=== PATIENT | female | born 1995 | race Caucasian/White ===

== ENCOUNTER 2016-05-25 19:34 | Emergency (ER) | payer MEDICAID, OTHER ==
[~2016-05-25] VITALS: Ht 160 cm; Wt 94.6 kg
[~2016-05-25 19:34] MED LIST: HYDR1TAB73 PO; IBUP200C42 PO; LANS30CA44 PO; [UNRECOGNIZED DRUG - CODE]
--- OUTSIDE RECORDS SUMMARY | 2016-05-25 19:38 | XMS REPORT | Continuity of Care Document ---
Author Author [facility] Organization [facility] Address Unknown Phone Unavailable Allergies Active Description Code Type Severity Reaction Onset Reported/Identified Relationship to Patient Clinical Status Yes No Known Drug Allergies [id number] N/A N/A Medications Problems Procedures Results Encounters ACCT No. Visit Date/Time Discharge Status Pt. Type Provider Facility Loc./Unit Complaint [id number] 05/20/2016 15:15:00 05/20/2016 23: 59:59 CLS Outpatient Ervin Joy
[2016-05-25 19:53] VITALS: Ht 160 cm; Wt 94.6 kg
[2016-05-25] MEDS ORDERED: PREN1TAB73 PO (20:00)
--- OUTSIDE RECORDS SUMMARY | 2016-05-25 20:06 | XMS REPORT | Continuity of Care Document ---
Author Author [facility] Organization [facility] Address Unknown Phone Unavailable Allergies Active Description Code Type Severity Reaction Onset Reported/Identified Relationship to Patient Clinical Status Yes No Known Drug Allergies [id number] N/A N/A Medications Problems Procedures Results Encounters ACCT No. Visit Date/Time Discharge Status Pt. Type Provider Facility Loc./Unit Complaint [id number] 05/20/2016 15:15:00 05/20/2016 23: 59:59 CLS Outpatient Ervin Joy
--- NOTE | 2016-05-25 20:07 | ERPDOC ---
Departure Disposition Decision Date: May 25, 2016 Disposition Decision Time: 22:24 Disposition: 01 DISCHARGED HOME, SELF-CARE Impression Impression Impression: Primary Impression: Syncope Syncope type: unspecified Qualified Codes: R55 - Syncope and collapse Severity: Moderate Condition: Stable Seen By: Mid-level only Referrals: ANTHONY WELLER MD (PCP) Patient Instructions: Syncope (ED) Problems/Meds/Labs Reviewed?: Yes Medications reviewed and manag: Yes Additional Instructions: Make sure that you are drinking plenty of fluids at home. Try to get some rest over the next few days. Follow up with Dr Joy if any further issues/ concerns. Follow up care ordered?: Yes Mental Status: Alert HPI - Syncope General Chief Complaint: Syncope Stated Complaint: PASSED OUT/ Time Seen by Provider: 19:59 Source: patient Exam Limitations: no limitations HPI - Syncope Initial Comments She was at home today and was outside with her boyfriend. She started coughing and then felt like she was going to pass out. Her BF states that she started to slide to the ground so he supported her down to laying position. She stated that she felt like she was dreaming for about 30 seconds. Feels back to normal now. Is 8 weeks , . LMP was 03/30/16. Has had an initial appointment with Dr Joy and will have her next appt on June 10. She has had one episode of vomiting today. Has not had any fever or diarrhea. Has been trying to eat and drink despite her nausea. Denies any injury Occurred At: home Onset: Rapid Duration: 1/2 hour Symptoms Prior to Episode: lightheadedness Precipitating Factors: standing, coughing Loss of Consciousness: brief (seconds) Current Symptoms: DENIES: blurred vision, chest pain, diaphoresis, dizziness, headache, injury, lightheadedness, loss of bladder control, loss of bowel control, motionless, nausea, pale, shallow/rapid breathing, weak/absent pulse, weakness Hx of Similar Symptoms: Yes Allergies: Coded Allergies: No Known Allergies (Unverified , 05/25/16) Past History Past Medical History Female: UTI, pyelonephritis Surgical History Joint: other Family History Family PMH: FOUND: ID, diabetes, hypertension Vaccines Hx Influenza Vaccination: No Hx Pneumococcal Vaccination: No Hx Tetanus, Diptheria, Pertuss: Yes Social History Smoking Status: Never smoker Substance Use Type: does not use Alcohol Intake: none Review of Systems Constitutional Constitutional: DENIES: appetite decrease, chills, dizziness, fatigue, fever, weakness ENMT Ears: DENIES: drainage, pain Sinuses: DENIES: congestion, rhinorrhea Mouth/Throat: DENIES: painful swallowing, scratchy throat, sore throat Cardiovascular Cardiac: DENIES: chest pain, orthopnea Rhythm/Rate: DENIES: irregular beat, palpitations Pulmonary Respiratory: DENIES: cough, dyspnea, sputum, tachypnea GI Upper Abdomen: nausea, vomiting (once today ), DENIES: pain Lower Abdomen: DENIES: constipation, diarrhea, pain General: DENIES: dysuria, frequency, urgency Integumentary Skin: DENIES: rash Neurological General: DENIES: headache, numbness, tingling, weakness Physical Exam General General Nourishment: well nourished, well developed, appears stated age, no acute distress, adult, obese General Body Habitus: well groomed Vitals and Pain First Documented Vital Signs Date Time Temp Pulse Resp B/P Pulse Ox O2 Delivery O2 Flow Rate FiO2 05/25/16 19:53 98.9 94 16 152/88 96 Room Air Weight: Kilograms: 94.600 Height (feet): 5 Height (inches): 3.00 Triage Pain Scale: RN VS reviewed by Provider: Yes Normal Exams: Neck: Full range of motion, without adenopathy, JVD, bruits or thyromegaly Chest/Resp: Clear all mckeon, with good airflow, and symmetry bilaterally CV: Regular rate and rhythm, without murmur or gallop, Pulses 2+ all extremities, capillary refill, <2 seconds all ext., no pedal edema noted Abdomen: Bowel sounds positive, soft, non-tender, non-distended, no hepatosplenomegaly, masses or bruits noted Lymphatic: No lymphadenopathy, or lymphedema noted Integumentary: No rashes, hives, or bruising noted Neurologic: Patient is alert, and oriented, cranial nerves, motor/sensory/ cerebellar, exams w/o gross deficits, to observation Psychiatric: Patient exhibits, appropriate attention, emotion and affect Differential Diagnoses Differential Diagnoses Considering: Bradycardia, Cardiac Dysrhythmia, Orthostatic Hypotension, UTI, Vasovagal Reaction, Other (dehydration) Progress Results/Orders Orders Procedure Category Date Status Time Cbc W/Auto LAB 05/25/16 Complete Diff-Reflex Manual Bmp - Basic Metabolic LAB 05/25/16 Complete Panel Ua, Dip Wreflex LAB 05/25/16 Complete Microsc & Chief Customer Officer 20:04 Iv Lock (Ed Only) EDM 05/25/16 Transmitted 20:04 Normal Saline (Normal PHA 05/25/16 Complete Saline Iv) 20:15 EKG EKG 05/25/16 Taken Lab Results Laboratory Tests Test 05/25/16 20:18 05/25/16 22:00 White Blood Count 10.2T/MM3 Red Blood Count 4.51M/MM3 Hemoglobin 13.9GM/DL Hematocrit 40.0% Mean Corpuscular Volume 88.7UM3 Mean Corpuscular Hemoglobin 30.8UUG Mean Corpuscular Hemoglobin Concent 34.8GM/DL RDW Standard Deviation 39.8FL Platelet Count 212T/MM3 Mean Platelet Volume 9.5UM3 Immature Granulocyte % (Auto) 0.3% Neutrophils (%) (Auto) 74.5% Lymphocytes (%) (Auto) 20.3% Monocytes (%) (Auto) 3.7% Eosinophils (%) (Auto) 1.0% Basophils (%) (Auto) 0.2% Absolute Immature Granulocyte (auto 0.03T/MM3 Absolute Neutrophils (auto) 7.6T/MM3 Absolute Lymphocytes (auto) 2.1T/MM3 Absolute Monocytes (auto) 0.4T/MM3 Absolute Eosinophils (auto) 0.1T/MM3 Absolute Basophils (auto) 0.0T/MM3 Turbidity < 20 Sodium Level 143MEQ/L Potassium Level 3.9MEQ/L Chloride Level 105MEQ/L Carbon Dioxide Level 24MEQ/L Anion Gap 14MEQ/L Blood Urea Nitrogen 6.0MG/DL Creatinine 0.5MG/DL Glomerular Filtration Rate Calc 154 BUN/Creatinine Ratio 12RATIO Glucose Level 124MG/DL Calculated Osmolality 274MOSM/KG Calcium Level 9.1MG/DL Icterus Index < 2 Chemistry Specimen Hemolysis 39 Urine Collection Type Cleancatch-midstream Urine Color Yellow Urine Turbidity Clear Urine pH 6.5 Urine Specific Alverda 1.010 Urine Protein Negative Urine Glucose (UA) Negative Urine Ketones Negative Urine Blood Negative Urine Nitrite Negative Urine Bilirubin Negative Urine Urobilinogen 0.2EU/DL Urine Leukocyte Esterase Negative Urinalysis Comment Microscopic not ind. Medications Current ED Medications Sodium Chloride (Normal Saline IV) 1,000 ml @ 1,000 mls/hr Q1H ONCE IV Last administered on 05/25/16t 20:23; Start 05/25/16 at 20:15; Stop 05/25/16 at 21:14; Status DC Progress Progress CBC, BMP, and UA today are normal. She has felt well during her stay in ER. Vitals are stable. Will go ahead and discharge to home today. Have her drink fluids and follow up with Dr Joy this week for reevaluation. TONY ALCARAZ APRN May 25, 2016 20:07
[2016-05-25] MEDS ORDERED: NORMAL SALINE 1,000 ML IV ONE (20:15)
[2016-05-25 20:35] LABS: BASOPHILS % (AUTO) 0.2 % (0-2); EOSINOPHILS # (AUTO) 0.1 T/MM3 (0-0.5); HGB - HEMOGLOBIN 13.9 GM/DL (12-16); IMMATURE GRANULOCYTE # (AUTO) 0.03 T/MM3 (0.00-0.03); IMMATURE GRANULOCYTE % (AUTO) 0.3 % (0.0-0.5); LYMPHOCYTES # (AUTO) 2.1 T/MM3 (1-4.8); LYMPHOCYTES % (AUTO) 20.3 % (23-45); MEAN CORPUSCULAR HGB 30.8 UUG (26-34); MEAN CORPUSCULAR HGB CONC(MCHC 34.8 GM/DL (31-37); MEAN CORPUSCULAR VOLUME 88.7 UM3 (80-100); MEAN PLATELET VOLUME 9.5 UM3 (9.4-12.4); MONOCYTES # (AUTO) 0.4 T/MM3 (0-0.8); MONOCYTES % (AUTO) 3.7 % (0-9.0); NEUTROPHILS #(AUTO)-ABSOLUTE 7.6 T/MM3 (1.8-7.7); NEUTROPHILS % (AUTO) 74.5 % (33-66); RED BLOOD COUNT 4.51 M/MM3 (4.00-5.20); WBC - WHITE BLOOD COUNT 10.2 T/MM3 (4.5-11.0)
[2016-05-25 20:39] LABS: ANION GAP 14 MEQ/L (5-15); BUN/CREATININE RATIO 12 RATIO (6-26); CALCIUM 9.1 MG/DL (8.4-10.2); CHLORIDE 105 MEQ/L (98-107); CO2 - CARBON DIOXIDE 24 MEQ/L (22-30); CREATININE 0.5 MG/DL (0.7-1.2); GLOMERULAR FILTRATION RATE 154; GLUCOSE 124 MG/DL (65-110); POTASSIUM 3.9 MEQ/L (3.6-5); SODIUM 143 MEQ/L (134-144)
[2016-05-25 22:23] LABS: BLOOD, URINE NEGATIVE (NEGATIVE); COLOR,URINE YELLOW (YELLOW); LEUKOCYTE ESTERASE ,URINE NEGATIVE (NEGATIVE); NITRITE,URINE NEGATIVE (NEGATIVE); UROBILINOGEN,URINE 0.2 EU/DL (NORMAL)
[2016-05-25 22:30] VITALS: BP 152/88; PULSE 94; RESP 16; TEMP 98.9; O2SAT 96
--- NOTE | 2016-05-25 23:20 | NUR ---
JOVON REDD ADVISED THAT ORTHOSTATICS ARE NOT NECESSARY
== END 2016-05-25 22:30 | disposition home or self-care (01) ==
LOC: ED 19:34
DX: O26.891 Other specified pregnancy related conditions, first trimester (principal); R55 Syncope and collapse; Z3A.08 8 weeks gestation of pregnancy
CPT/HCPCS: 80048; 81003; 85025; 93005; 96360; 99284; J7030

== ENCOUNTER 2017-01-04 10:58 | Inpatient (IN) ==
[2017-01-07] MEDS ORDERED: ACETAMINOPHEN 500 MG TABLET PO PRN ×2 (05:53→16:53)
[2017-01-07] MEDS ORDERED: LIDOCAINE 1% (10mg/ml) 2mL INJ PF SDV ID PRN (05:53)
[2017-01-07] MEDS ORDERED: METHYLERGONOVINE 0.2 MG/ML INJECTION IM PRN (05:53)
[2017-01-07] MEDS ORDERED: MAG-AL + SIM ORAL LIQUID 30ml PO PRN (05:53)
[2017-01-07] MEDS ORDERED: CALCIUM CARBONATE Chewable 500mg TABLET PO PRN ×2 (05:53→16:53)
[2017-01-07] MEDS ORDERED: CARBOPROST 250 MCG/ML INJECTION IM PRN (05:53)
--- OUTSIDE RECORDS SUMMARY | 2017-01-07 05:58 | External Medical Summary | Continuity of Care Document ---
:1995 Author Organization [facility] Address [address] [place], [place] [id number] Phone Care Team Providers Name Role Phone Gladis Conrad DO Unavailable Unavailable Allergies, Adverse Reactions, Alerts Substance Reaction Severity Status No Known Drug Allergies Unknown Active Medications Medication Instructions Dosage Effective Dates Status Comments (start - stop) 28 mg take 1 tablet by Not Available - Active iron-800 mcg oral route every tablet day Problems Condition Effective Dates (start - stop) Clinical Status Pap Smear Screening, Cervix - Encntr for suprvsn of normal first - preg, first trimester Less than 8 weeks gestation of - Maternal care for excess growth, - second tri, unsp 20 weeks gestation of - Encntr for suprvsn of normal first - preg, first trimester 10 weeks gestation of - Encntr for suprvsn of normal first - preg, first trimester 8 weeks gestation of - Encntr for suprvsn of normal first - preg, second trimester 24 weeks gestation of - Encntr for suprvsn of normal first - preg, second trimester 14 weeks gestation of - Encntr for suprvsn of normal first - preg, second trimester 17 weeks gestation of - Encntr for suprvsn of normal first - preg, second trimester 20 weeks gestation of - GERD Active Procedures Procedure Date Unknown Results Test Name Date and Time Measure Units Reference Range Abnormal Flag Comments Unknown Advance Directives Directive Yes / No Effective Date File Name Unknown Encounters Encounter Practice Location Reason(s) Diagnoses Date Provider Care Description For Visit Team Members Luli Bhattr for Adebayo-2 [facility] [place] [place], normal first 7 Medical [address], preg, second [place], [place], Mukund Isaacs , weeks gestation 120, [place], tel:[phone], [phone] , [place]. tel:[phone] Luli [place] Adebayo-2 [facility] In [facility] 3-201 [place]. [facility], 7 Medical [address], [place], [place], Mukund Isaacs , 120, [place], tel:[phone] [place], [phone] , [place]. tel:[phone] Luli [place] Encntr for Dwayne-2 [facility] [place]. [facility] [place], normal first 7 Medical [address], preg, second [place], [place], [email or web address] Mukund Isaacs , weeks gestation 120, [place], tel:[phone] [place], [phone] , [place]. tel:[phone] Luli [place] Maternal care Dwayne-2 [facility] In [facility] Ultrasound for excess 8 [place]. [facility] [place], growth, 7 Medical [address], second tri, [place], [place], [email or web address] weeks Mukund Isaacs , gestation of 120, [place], tel:[phone] [place], [phone] , [place]. tel:[phone] Luli [place] Encntr for Dwayne-1 [facility] [place]. [facility] [place], normal first 7 Medical [address], preg, second [place], [place], [email or web address] Mukund Isaacs , weeks gestation 120, [place], tel:[phone] [place], [phone] , [place]. tel:[phone] Luli [place] Encntr for May-1 [place] In Wom[facility] suprvsn of 8-201 [place]. [facility] [place], normal first 7 Medical [address], preg, second [place], [place], [email or web address] Mukund Isaacs , weeks gestation 120, [place], tel:[phone] [place], [phone] , [place]. tel: [phone] Luli [place] Encntr for Apr-2 [place] In Womens suprvsn of 0-201 [place]. [facility] [place], normal first 7 Medical [address], preg, first [place], [place], [email or web address] Mukund Isaacs [id number], weeks gestation 120, [place], tel:[phone] [place], [phone] , [place]. tel: [phone] Luli [place] Encntr for Apr-0 [place] In Womens suprvsn of 6-201 [place]. [facility] [place], normal first 7 Medical [address], preg, first [place], [place], trimester8 Mukund Isaacs [id number], weeks gestation 120, [place], tel:[phone] [place], [phone] , [place]. tel: [phone] Luli [place] Pap Smear Mar-3 [place] In Womens Screening, 0-201 [place]. [facility] [place], CervixEncntr 7 Medical [address], for suprvsn of [place], normal first Mukund Isaacs [id number], preg, first 120, [place] trimesterLess [place], tel:[phone] than 8 [place], [phone] gestation of [id number] , [place]. tel: [phone] Family History Family Member Diagnosis Age At Onset Maternal Grandfather Cardiovascular Disease Mother Diabetes Maternal Grandmother Cardiovascular Disease Mother Hypertension Paternal Grandmother Hypertension Maternal Grandmother Hypertension Paternal Grandmother Osteoporosis Maternal Grandmother Osteoporosis Maternal Grandmother Uterine Cancer Maternal Grandmother Diabetes Paternal Grandmother Diabetes Paternal Grandmother Ovarian Cancer Maternal Grandfather Hypertension Paternal Grandmother Cardiovascular Disease Immunizations Vaccine Date Status Comments Unknown Payers Payer name Insurance type Covered libertarian ID Authorization(s) [employer] Plan Of [place] - Medicaid MC [id number] Social History Type Description Quantity Date Captured Unknown Vital Signs Date / Height Weight BMI Pulse Blood Temperature Respiratory Body Head BMI Time: Rate Pressure Rate Surface Circumference percentile Area Unknown Chief Complaint And Reason For Visit Unknown Chief Complaint And Reason For Visit Reason For Referral Reason For Referral Unknown Plan Of Care Date Type Action Status Appointment Karl Olivo BOOKED Future Order: Radiology Order Complete OB Ultrasound > 14 Ordered Weeks (32110) Date Type Problem Goal Intervention Status Start Date Unknown. History Of Present Illness Encounter Date Complaint History Of Present Illness This patient has no known history of present illness Functional Status Encounter Date Functional Assessment Cognitive Assessment Unknown Medications Administered Medication Instructions Dosage Effective Dates (start - stop) Status Comments Drug Treatment Unknown Instructions Date Instruction Additional Information HIV and other routine tests risk factors identified by history anticipated course of care nutrition and weight gain counseling, special diet toxoplasmosis precautions (cats / raw meat) sexual activity exercise indications for ultrasound influenza vaccine environmental / work hazards travel use of any medications (including supplements, vitamins, herbs, OTC drugs) domestic violence seat belt use childbirth classes / hospital facilities hospital registration genetic testing new ob handbook
--- OUTSIDE RECORDS SUMMARY | 2017-01-07 06:00 | External Medical Summary | Continuity of Care Document ---
:1995 Author Organization [facility] Address [address] [place], [place] [id number] Phone Care Team Providers Name Role Phone Gladis Conrad DO Unavailable Unavailable Allergies, Adverse Reactions, Alerts Substance Reaction Severity Status No Known Drug Allergies Unknown Active Medications Medication Instructions Dosage Effective Dates Status Comments (start - stop) Zofran 4 mg tablet take 1 by Oral route Not Available - Active every 6 hours as needed 28 mg take 1 tablet by Not Available - Active iron-800 mcg oral route every tablet day Problems Condition Effective Dates (start - stop) Clinical Status Encntr for suprvsn of normal first - preg, third trimester 30 weeks gestation of - Pap Smear Screening, Cervix - Encntr for suprvsn of normal first - preg, first trimester Less than 8 weeks gestation of - Vomiting of , unspecified - 28 weeks gestation of - Vomiting of , unspecified - Encntr for suprvsn of normal first - preg, third trimester 28 weeks gestation of - Maternal care for excess growth, - second tri, unsp 20 weeks gestation of - Encntr for suprvsn of normal first - preg, first trimester 10 weeks gestation of - Encntr for suprvsn of normal first - preg, first trimester 8 weeks gestation of Apr-06-2017 - 14 weeks gestation of - Encntr for suprvsn of normal first - preg, second trimester Encntr for suprvsn of normal first - preg, second trimester 17 weeks gestation of - Encntr for suprvsn of normal first - preg, second trimester 20 weeks gestation of - Encntr for suprvsn of normal first - preg, second trimester 24 weeks gestation of - Encntr for suprvsn of normal first - preg, third trimester 32 weeks gestation of - GERD Active Procedures Procedure Date OB Visit No Charge Results Test Name Date and Time Measure Units Reference Range Abnormal Flag Comments Unknown Advance Directives Directive Yes / No Effective Date File Name Unknown Encounters Encounter Practice Location Reason(s) Diagnoses Date Provider Care Description For Visit Team Members [facility] [place] Encntr for suprvsn Sep-2 [place] In Wom[facility] of normal first 1-201 [place]. [facility] [place], preg, third 7 Medical [address] [email or web address] weeks [address], gestation of [place] Isaacs, 120, [place], [place], [id number], [place], [place] [id number] tel: , [place]. tel: [phone] [facility] [place] Encntr for suprvsn Sep-0 [place] In Womens of normal first 7-201 [place]. 700 [place], preg, third 7 Medical PO [address] [email or web address] weeks Center 1522, gestation of [place] Isaacs, 120, [place], [place], [id number], [place], [place] [id number] tel: , [place]. tel: [phone] [facility] [place] Vomiting of Aug-2 Rufino In Womens , 4-201 [place]. 700 [place], unspecifiedEncntr 7 Medical PO Box for suprvsn of [address], normal first preg, [place], third [email or web address] 120, [place], weeks gestation of [place], [id number], [place], [place] [id number] tel:+ , [place]. tel: [phone] [facility] [place] Vomiting of Aug-2 [place] In Womens , 2-201 [place]. [facility] [place], [email or web address] 7 Medical PO Box weeks gestation of Center [address], [place] Isaacs, 120, [place], [place], [id number], [place], [place] [id number] tel:+ , [place]. tel: [phone] [facility] [place] Encntr for suprvsn Adebayo-2 [place] In Womens of normal first 7-201 [place]. [facility] [place], preg, second 7 Medical PO Box [email or web address] weeks [address], gestation of [place], 120, [place], [place], [id number], [place] [id number] tel:+ , [place]. tel: [phone] [facility] [place] Encntr for suprvsn Dwayne-2 [place]uf[place] In Womens of normal first 8-201 [place]. [facility] [place], preg, second 7 Medical PO Box [id number] weeks [address], gestation of [place] Isaacs, 120, [place], [place], [id number], [place] [id number] tel:+ , [place]. tel: [phone] Luli [place] Maternal care for Dwayne-2 [place] In Womens Ultrasound excess 8-201 [place]. [facility] [place], growth, second 7 Medical PO Box tri, [email or web address] weeks [address], gestation of [place] Isaacs, 120, [place], [place], [id number], [place] [id number] tel:+ , [place]. tel: [phone] Luli [place] Encntr for suprvsn Dwayne-1 [place] In Womens of normal first 2-201 [place]. [facility] [place], preg, second 7 Medical PO Box [email or web address] weeks Center [address], gestation of [place] Isaacs, 120, [place], [place], [id number], [place] [id number] tel:+ , [place]. tel: [phone] Luli [place] 14 weeks gestation May-1 [place] In Womens of pregnancyEncntr 8-201 [place]. [facility] [place], for suprvsn of 7 Medical PO Box normal first preg, Center [address], second trimester [place], 120, [place], [place], [id number], [place], [place] [id number] tel: , [place]. tel: [phone] [facility] [place] Encntr for suprvsn Apr-2 [place]uf[place] In Womens of normal first 0-201 [place]. [facility] [place], preg, first 7 Medical PO Box [email or web address] weeks Center 1522, gestation of [place], 120, [place], [place], [id number], [place], [place] [id number] tel: , [place]. tel: [phone] [facility] [place] Encntr for suprvsn Apr-0 Ruf[place] In Womens of normal first 6-201 [place]. [facility] [place], preg, first 7 Medical PO Box [email or web address] weeks Center [address], gestation of [place], 120, [place], [place], [id number], [place], [place] [id number] tel: , [place]. tel: [phone] Luli [place] Pap Smear Mar-3 Rufino In Womens Screening, 0-201 [place]. [facility] [place], CervixEncntr for 7 Medical PO Box suprvsn of normal [address], first preg, first [place], trimesterLess than 120, [place], 8 weeks gestation [place], [id number], of [place], [place] [id number] tel: , [place]. tel: [phone] Family History Family Member Diagnosis Age At [...] Unknown Payers Payer name Insurance type Covered green party ID Authorization(s) [employer] Plan Of [place] - Medicaid MC [id number] Social History Type Description Quantity Date Captured Alcohol Use Details No Caffeine Use Details Unknown Tobacco Use Status Smoking Status Former smoker Vital Signs Date / Height Weight BMI Pulse Blood Temperature Respiratory Body Head BMI Time: Rate Pressure Rate Surface Circumference percentile Area 222.90 39.4 121/73 lbs 8 mm[Hg] 10:28 kg/m AM eter (2) Chief Complaint And Reason For Visit Unknown Chief Complaint And Reason For Visit Reason For Referral Reason For Referral Unknown Plan Of Care Date Type Action Status Appointment Karl Olivo BOOKED Future Order: Radiology Order Complete OB Ultrasound > 14 Ordered Weeks ([id number]) Date Type Problem Goal Intervention Status Start [...]
--- OUTSIDE RECORDS SUMMARY | 2017-01-07 06:00 | External Medical Summary | Continuity of Care Document ---
:1993 Author Organization [facility] Address [address] [place], [place] [phone] Phone Care Team Providers Name Role Phone [...] of normal first - preg, third trimester 34 weeks gestation of - Pap Smear Screening, Cervix - Encntr for suprvsn of normal first - preg, first trimester Less than 8 weeks gestation of - Vomiting of , unspecified - Encntr for suprvsn of normal first - preg, third trimester 28 weeks gestation of - Vomiting of , unspecified - 28 weeks gestation of - Maternal care [...] third trimester 32 weeks gestation of - Encntr for suprvsn of normal first - preg, third trimester 30 weeks gestation of - Encntr for suprvsn of normal first - preg, third trimester 36 weeks gestation of - GERD Active Procedures Procedure Date Immuniz admnin, 1 vac, sngl/combo 19 Yrs + TDAP VACCINE >7 IM OB Visit No Charge Results Test Name Date and Time Measure Units Reference Range Abnormal Flag Comments Unknown Advance Directives Directive Yes / No Effective Date File Name Unknown Encounters Encounter Practice Location Reason(s) Diagnoses Date Provider Care Team Description For Visit Members Luli Motneiro Encntr for Oct-1 Rufino In Womens suprvsn of normal 9-201 [place]. 700 [facility] [place], first preg, third 7 Medical PO Box [email or web address] weeks Center 1522, gestation of Mukund Isaacs, 120, [id number], [id number] tel: , . tel: [phone] Luli [place] Encntr for Oct-0 Rufino Referring In Womens suprvsn of normal 5-201 Ervin. 700 Provider: Health [place], first preg, third 7 Medical Ervin PO Box [email or web address] weeks Letcher Rufino , 1522, gestation of Mukund Isaacs, 120, [facility] [place] [facility] [id number] 120, [id number] [place], tel: , . [place] tel: [phone]. [id number] tel:[phone] Luli [place] Encntr for Sep-2 Rufino In Womens suprvsn of normal 1-201 [place]vin. 700 [facility] [place], first preg, third 7 Medical PO Box weeks Center 1522, gestation of Mukund Isaacs, 120, [place], [place], [id number], [place] [id number] tel: , [place]. tel: [phone] [facility] [place] Encntr for Sep-0 Rufino In Womens suprvsn of normal 7-201 [place]vin. 700 [facility] [place], first preg, third 7 Medical PO Box [email or web address] weeks Center 1522, gestation of Mukund Isaacs, 120, [place], [place], [id number], [place] [id number] tel: , [place]. tel: [phone] [facility] [place] Vomiting of Aug-2 Rufino In Womens , 4-201 Ervin. 700 [facility] [place], unspecifiedEncntr 7 Medical PO Box for suprvsn of Center 1522, normal first Mukund Isaacs, preg, third 120, [place], [email or web address] weeks [place], , gestation of [place], [place] [id number] tel: , [place]. tel: [phone] [facility] [place] Vomiting of Aug-2 Rufino In Womens , 2-201 Ervin. 700 [facility] [place], [email or web address] 7 Medical PO Box weeks gestation Center 1522, of Mukund Isaacs, 120, [place], [place], , [place] [id number] tel: , [place]. tel: [phone] [facility] [place] Encntr for Adebayo-2 Rufino In Womens suprvsn of normal 7-201 [place]vin. 700 [facility] [place], first preg, 7 Medical PO Box second Center 1522, [email or web address] weeks Mukund Isaacs, gestation of 120, [place], [place], [id number], [place] [id number] tel: , [place]. tel: [phone] [facility] [place] Encntr for Dwayne-2 Rufino In Womens suprvsn of normal 8-201 [place]. 700 [facility] [place], first preg, 7 Medical PO Box second Center 1522, [email or web address] weeks Mukund Isaacs, gestation of 120, [place], [place], , [place] [id number] tel:+ , [place]. tel: [phone] [facility] [place] Maternal care for Dwayne-2 Rufino In Womens Ultrasound excess 8-201 [place]. 700 [facility] [place], growth, second 7 Medical PO Box tri, [email or web address] weeks Center 1522, gestation of Mukund Isaacs, 120, [place], [place], [id number], [place] [id number] tel:+ , [place]. tel: [phone] [facility] [place] Encntr for Dwayne-1 Rufino In Womens suprvsn of normal 2-201 [place]. 700 [facility] [place], first preg, 7 Medical PO Box second Center 1522, [email or web address] weeks Mukund Isaacs, gestation of 120, [place], [place], , [place] [id number] tel:+ , [place]. tel: [phone] [facility] [place] Encntr for May-1 Rufino In Womens suprvsn of normal 8-201 [place]. 700 [facility] [place], first preg, 7 Medical PO Box second Center 1522, [email or web address] weeks Mukund Isaacs, gestation of 120, [place], [place], , [place] [id number] tel:+ , [place]. tel: [phone] [facility] [place] Encntr for Apr-2 Rufino In Womens suprvsn of normal 0-201 [place]. 700 [facility] [place], first preg, first 7 Medical PO Box [email or web address] weeks Center 1522, gestation of Mukund Isaacs, 120, [place], [place], , [place], [place] [id number] tel:+ , [place]. tel: [phone] [facility] [place] Encntr for Apr-0 Rufino In Womens suprvsn of normal 6-201 [place]. 700 [facility] [place], first preg, first 7 Medical PO Box trimester8 weeks Center 1522, gestation of Mukund Isaacs, 120, [place], [place], , [place] [id number] tel: , [place]. tel: [phone] Luli [place] Pap Smear Apr-3 Rufino In Womens Screening, 0-[address], CervixEncntr for 7 Medical PO Box suprvsn of [place] Center 1522, first preg, first Mukund Isaacs, trimesterLess 120, [place], than 8 weeks [place], [id number], gestation of [place], [place] [id number] tel: , [place]. tel: [phone] Family History Family Member Diagnosis Age At Onset Maternal Grandfather Cardiovascular Disease Mother Diabetes Maternal Grandmother Cardiovascular Disease Mother Hypertension Paternal Grandmother Hypertension Maternal Grandmother Hypertension Paternal Grandmother Osteoporosis Maternal Grandmother Osteoporosis Maternal Grandmother Uterine Cancer Maternal Grandmother Diabetes Paternal Grandmother Diabetes Paternal Grandmother Ovarian Cancer Maternal Grandfather Hypertension Paternal Grandmother Cardiovascular Disease Immunizations Vaccine Date Status Comments Tdap completed Source: New Immunization Record Payers Payer name Insurance type Covered alliance party ID Authorization(s) [employer] [place] - Medicaid MC [id number] [place] [place] - Medicaid MC [id number] Social History Type Description Quantity Date Captured Alcohol Use Details No Caffeine Use Details Unknown Tobacco Use Status Smoking Status Former smoker Vital Signs Date / Height Weight BMI Pulse Blood Temperature Respiratory Body Head BMI Time: Rate Pressure Rate Surface Circumference percentile Area 228.80 40.5 122/83 -2017 lbs 3 mm[Hg] 10:16 kg/m AM eter (2) Chief Complaint And Reason For Visit Unknown Chief Complaint And Reason For Visit Reason For Referral Reason For Referral Unknown Plan Of Care Date Type Action Status Future Order: Radiology Order Complete OB Ultrasound > 14 Ordered Weeks (88747) Date Type Problem Goal Intervention Status Start [...]
--- OUTSIDE RECORDS SUMMARY | 2017-01-07 06:00 | External Medical Summary | Continuity of Care Document ---
:1993 Author Organization [facility] Address [address] [place], [place] [phone] Phone Care Team Providers Name Role Phone [...] Clinical Status Pap Smear Screening, Cervix - Less than 8 weeks gestation of - Encntr for suprvsn of normal first - preg, first trimester Vomiting of , unspecified - 28 weeks [...] third trimester 30 weeks gestation of - GERD Active Procedures Procedure Date Unknown Results Test Name Date and Time Measure Units Reference Range Abnormal Flag Comments Unknown Advance Directives Directive Yes / No Effective Date File Name Unknown Encounters Encounter Practice Location Reason(s) Diagnoses Date Provider Care Description For Visit Team Members [facility] [place] Encntr for suprvsn Sep-0 Rufino In Womens of normal first 7-201 [place]. 700 [facility] [place], preg, third 7 Medical PO Box weeks Center 1522, gestation of Mukund Isaacs, 120, [place], [place], [id number], [place], [place] [id number] tel:+ , [place]. tel: [phone] [facility] [place] Aug-2 Rufino In Womens 5-201 [place]. 700 [facility], 7 Medical PO Box Center 1522, Mukund Isaacs, 120, [place], [place], , [place], [place] [id number] tel: , [place]. tel: [phone] Luli [place] Vomiting of Aug-2 Rufino In Womens , 4-201 [place]. 700 [facility] [place], unspecifiedEncntr 7 Medical PO Box for suprvsn of Center 1522, normal first preg, Mukund Isaacs, third [email or web address] 120, [place], weeks gestation of [place], , [place], [place] [id number] tel: , [place]. tel:[phone] [facility] [place] Vomiting of Aug-2 Rufino In Womens , 2-201 [place]. 700 [facility] [place], [email or web address] 7 Medical PO Box weeks gestation of Center 1522, Mukund Isaacs, 120, [place], [place], , [place], [place] [id number] tel:+ , [place]. tel: [phone] [facility] [place] Encntr for suprvsn Adebayo-2 Rufino In Womens of normal first 7-201 Ervin. 700 [facility] [place], preg, second 7 Medical PO Box [email or web address] weeks Center 1522, gestation of Mukund Isaacs, 120, [place], [place], [id number], [place], [place] [id number] tel:+ , [place]. tel: [phone] [facility] [place] Encntr for suprvsn Dwayne-2 Rufino In Womens of normal first 8-201 Er[place]. 700 [facility] [place], preg, second 7 Medical PO Box [email or web address] weeks Center 1522, gestation of Mukund Isaacs, 120, [place], [place], , [place], [place] [id number] tel:+ , [place]. tel: [phone] [facility] [place] Maternal care for Dwayne-2 Rufino In Womens Ultrasound excess 8-201 [place]. 700 [facility] [place], growth, second 7 Medical PO Box tri, [email or web address] weeks Center 1522, gestation of Mukund Isaacs, 120, [place], [place], , [place], [place] [id number] tel:+ , [place]. tel: [phone] [facility] [place] Encntr for suprvsn Dwayne-1 Rufino In Womens of normal first 2-201 Ervin. 700 [facility] [place], preg, second 7 Medical PO Box [email or web address] weeks Center 1522, gestation of Mukund Isaacs, 120, [place], [place], , [place], [place] [id number] tel:+ , [place]. tel: [phone] [facility] [place] Encntr for suprvsn May-1 Rufino In Womens of normal first 8-201 Ervin. 700 [facility] [place], preg, second 7 Medical PO Box [email or web address] weeks Center 1522, gestation of Mukund Isaacs, 120, [place], [place], [id number], [place], [place] [id number] tel: , [place]. tel: [phone] [facility] [place] Encntr for suprvsn Apr-2 Rufino In Womens of normal first 0-201 [place]. 700 [facility] [place], preg, first 7 Medical PO Box [email or web address] weeks Center 1522, gestation of Mukund Isaacs, 120, [place], [place], [id number], [place], [place] [id number] tel:+ , [place]. tel: [phone] [facility] [place] Encntr for suprvsn Apr-0 Rufino In Womens of normal first 6-201 [place]. 700 [facility] [place], preg, first 7 Medical PO Box trimester8 weeks Center 1522, gestation of Mukund Isaacs, 120, [place], [place], [id number], [place], [place] [id number] tel: , [place]. tel: [phone] [facility] [place] Pap Smear Mar-3 Rufino In Womens Screening, 0-201 [place]. 700 [facility] [place], CervixLess than 8 7 Medical PO Box weeks gestation of Center 1522, pregnancyEncntr Mukund Isaacs, for suprvsn of 120, [place], normal first preg, [place], [id number], first trimester [place], [place] [id number] tel:+ , [place]. tel: [phone] Family History Family Member Diagnosis Age At [...] [employer] [place] - Medicaid MC [id number] Social History Type Description Quantity Date Captured [...] Complete OB Ultrasound > 14 Ordered Weeks ([id number]) Date Type Problem Goal Intervention Status Start [...]
--- OUTSIDE RECORDS SUMMARY | 2017-01-07 06:00 | External Medical Summary | Continuity of Care Document ---
:1993 Author Organization [facility] Address [address] [place], [place] [phone] Phone Care Team Providers Name Role Phone [...] Effective Dates (start - stop) Clinical Status Vomiting of , unspecified - 28 weeks gestation of - Pap Smear Screening, Cervix - Less than 8 weeks gestation of - Encntr for suprvsn of normal first - preg, first trimester Vomiting of , unspecified - Encntr for [...] Team Members [facility] [place] Encntr for suprvsn Oct-0 Rufino In Womens of normal first 7-201 [place]. 700 [facility] [place], preg, third 7 Medical PO Box [email or web address] weeks [place] 1522, gestation of Mukund Isaacs, 120, [place], [place], [id number], [place], [place] [id number] tel:+ , [place]. tel: [phone] [facility] [place] Vomiting of Aug-2 Rufino In Womens , 4-201 [place]. 700 [facility] [place], unspecifiedEncntr 7 Medical PO Box for suprvsn of [place] 1522, normal first preg, Mukund Isaacs, third [email or web address] 120, [place], weeks gestation of [place], , [place], [place] [id number] tel: , [place]. tel:[phone] [facility] [place] Vomiting of Aug-2 Rufino In Womens , 2-201 [place]. 700 [facility] [place], [email or web address] 7 Medical PO Box weeks gestation of [place] 1522, Mukund Isaacs, 120, [place], [place], [id number], [place], [place] [id number] tel:+[phone] , [place]. tel:[phone] [facility] [place] Encntr for suprvsn Aug-2 Rufino In Womens of normal first 7-201 [facility] 700 Health [place], preg, second 7 Medical PO Box weeks [place] 1522, gestation of Mukund Isaacs, 120, [place], [place], [id number], [place], [place] [id number] tel: , [place]. tel: [phone] [facility] [place] Encntr for suprvsn Dwayne-2 Rufino In Womens of normal first 8-201 Ervin. 700 [facility] [place], preg, second 7 Medical PO Box [email or web address] weeks Center 1522, gestation of Mukund Isaacs, 120, [place], [place], [id number], [place], [place] [id number] tel:+ , [place]. tel: [phone] [facility] [place] Maternal care for Dwayne-2 Rufino In Womens Ultrasound excess 8-201 Ervin. 700 [facility] [place], growth, second 7 Medical PO Box tri, [email or web address] weeks Center 1522, gestation of Mukund Isaacs, 120, [place], [place], , [place], [place] [id number] tel:+ , [place]. tel: [phone] [facility] [place] Encntr for suprvsn Dwayne-1 Rufino In Womens of normal first 2-201 Ervin. 700 [facility] [place], preg, second 7 Medical PO Box [email or web address] weeks Center 1522, gestation of Mukund Isaacs, 120, [place], [place], , [place], [place] [id number] tel:+ , [place]. tel: [phone] [facility] [place] Encntr for suprvsn May-1 Rufino In Womens of normal first 8-201 Ervin. 700 [facility] [place], preg, second 7 Medical PO Box [email or web address] weeks Center 1522, gestation of Mukund Isaacs, 120, [place], [place], , [place], [place] [id number] tel: , [place]. tel: [phone] [facility] [place] Encntr for suprvsn Apr-2 Rufino In Womens of normal first 0-201 Ervin. 700 [facility] [place], preg, first 7 Medical PO Box [email or web address] weeks Center 1522, gestation of Mukund Isaacs, 120, [place], [place], , [place], [place] [id number] tel:+ , [place]. tel: [phone] [facility] [place] Encntr for suprvsn Apr-0 Rufino In Womens of normal first 6-201 [place] [address] [facility], preg, first 7 Medical PO Box trimester8 weeks Center 1522, gestation of Mukund Isaacs, 120, [place], [place], [id number], [place], [place] [id number] tel: , . tel: [phone] Luli [place] Pap Smear Mar-3 Rufino In Womens Screening, 0-[address] [place], CervixLess than 8 7 Medical PO Box weeks gestation of Center 1522, pregnancyEncntr Mukund Isaacs, for suprvsn of 120, [place], normal first preg, [place], [id number], first trimester [place], [place] [id number] tel: , . tel: [phone] Family History Family Member Diagnosis Age At [...] [employer] [place] - Medicaid MC [id number] Social History Type Description Quantity Date Captured Alcohol Use Details No Caffeine Use Details Unknown Tobacco Use Status Smoking Status Former smoker Vital Signs Date / Height Weight BMI Pulse Blood Temperature Respiratory Body Head BMI Time: Rate Pressure Rate Surface Circumference percentile Area 221.10 39.1 137/ lbs 6 mm[Hg] 10:14 kg/m AM eter (2) Chief Complaint And Reason For Visit Unknown Chief Complaint And Reason For Visit Reason For Referral Reason For Referral Unknown Plan Of Care Date Type Action Status Appointment Karl Olivo BOOKED Future Order: Radiology Order Complete OB Ultrasound > 14 Ordered Weeks ([id number]) Date Type Problem Goal Intervention Status Start [...]
--- OUTSIDE RECORDS SUMMARY | 2017-01-07 06:00 | External Medical Summary | Continuity of Care Document ---
:1993 Author Organization [facility] Address [address] [place], [place] [phone] Phone Care Team Providers Name Role Phone [...] third trimester 32 weeks gestation of - Pap Smear Screening, [...] third trimester 34 weeks gestation of - Encntr for suprvsn [...] Care Team Description For Visit Members Luli [place] Encntr for Oct-0 Rufino Referring In Womens suprvsn of normal 5-201 Ervin. 700 Provider: Health [place], first preg, third 7 Medical Ervin PO Box [email or web address] weeks Harleigh Rufino R, 1522, gestation of Mukund Isaacs, 120, [facility] [id number], [place] [address], [id number] [place], tel: , . [place], tel: [phone]. [id number] tel:[phone] Luli [place] Encntr for Sep-2 Rufino In Womens suprvsn of normal 1-201 Ervin. 700 [facility] [place], first preg, third 7 Medical PO Box [email or web address] weeks Center 1522, gestation of Mukund Isaacs, 120, [place] [id number], [place], [place] [id number] tel: , . tel: [phone] Luli [place] Encntr for Sep-0 Rufino In Womens suprvsn of normal 7-201 Ervin. 700 [facility] [place], first preg, third 7 Medical PO Box [email or web address] weeks Center 1522, gestation of Mukund Isaacs, 120, [place] [id number], [place], [place] [id number] tel: , [place]. tel: [phone] [facility] [place] Vomiting of Aug-2 Rufino In Womens , 4-201 Ervin. 700 [facility] [place], unspecifiedEncntr 7 Medical PO Box for suprvsn of Center 1522, normal first Mukund Isaacs, preg, third 120, [place], [email or web address] weeks [place], , gestation of [place], [place] tel: , [place]. tel: [phone] [facility] [place] Vomiting of Aug-2 Rufino In Womens , 2-201 Ervin. 700 [facility] [place], [email or web address] 7 Medical PO Box weeks gestation Center 1522, of Mukund Isaacs, 120, [place], [place], [id number], [place], [place] tel: , [place]. tel: [phone] [facility] [place] Encntr for Adebayo-2 Rufino In Womens suprvsn of normal 7-201 Ervin. 700 [facility] [place], first preg, 7 Medical PO Box second Center 1522, [email or web address] weeks Mukund Isaacs, gestation of 120, [place], [place], [id number], [place], [place] [id number] tel: , [place]. tel: [phone] [facility] [place] Encntr for Dwayne-2 Rufino In Womens suprvsn of normal 8-201 Ervin. 700 [facility] [place], first preg, 7 Medical PO Box second Center 1522, [email or web address] weeks Mukund Isaacs, gestation of 120, [place], [place], [id number], [place], [place] [id number] tel: , [place]. tel: [phone] [facility] [place] Maternal care for Dwayne-2 Rufino In Womens Ultrasound excess 8-201 Ervin. 700 [facility] [place], growth, second 7 Medical PO Box tri, [email or web address] weeks Center 1522, gestation of Mukund Isaacs, 120, [place], [place], [id number], [place], [place] [id number] tel: , [place]. tel: [phone] [facility] [place] Encntr for Dwayne-1 Rufino In Womens suprvsn of normal 2-201 [place]. 700 [facility] [place], first preg, 7 Medical PO Box second Center 1522, [email or web address] weeks Mukund Isaacs, gestation of 120, [place], [place], [id number], [place], [place] [id number] tel:+ , [place]. tel: [phone] [facility] [place] Encntr for May-1 Rufino In Womens suprvsn of normal 8-201 [place]. 700 [facility] [place], first preg, 7 Medical PO Box second Center 1522, [email or web address] weeks Mukund Isaacs, gestation of 120, [place], [place], [id number], [place], [place] [id number] tel: , [place]. tel: [phone] [facility] [place] Encntr for Apr-2 Rufino In Womens suprvsn of normal 0-201 [place]. 700 [facility] [place], first preg, first 7 Medical PO Box weeks Center 1522, gestation of Mukund Isaacs, 120, [place], [place], [id number], [place], [place] [id number] tel:+ , [place]. tel: [phone] [facility] [place] Encntr for Apr-0 Rufino In Womens suprvsn of normal 6-201 [place]. 700 [facility] [place], first preg, first 7 Medical PO Box trimester8 weeks Center 1522, gestation of Mukund Isaacs, 120, [place], [place], [id number], [place], [place] [id number] tel: , [place]. tel: [phone] Luli [place] Pap Smear Mar-3 Rufino In Womens Screening, 0-201 [place]. 700 [facility] [place], CervixEncntr for 7 Medical PO Box suprvsn of normal Center 1522, first preg, first Mukund Isaacs, trimesterLess 120, [place], than 8 weeks [place], , gestation of [place], [place] [id number] tel: , [place]. tel: [phone] Family History Family Member Diagnosis Age At [...] Record Payers Payer name Insurance type Covered republican ID Authorization(s) [employer] [place] - Medicaid MC [id number] [employer] [place] - Medicaid MC [id number] Social History Type Description Quantity Date Captured Alcohol Use Details No Caffeine Use Details Unknown Tobacco Use Status Smoking Status Former smoker Vital Signs Date / Height Weight BMI Pulse Blood Temperature Respiratory Body Head BMI Time: Rate Pressure Rate Surface Circumference percentile Area 225.70 39.9 / lbs 8 mm[Hg] 10:45 kg/m AM eter (2) Chief Complaint And Reason For Visit Unknown Chief Complaint And Reason For Visit Reason For Referral Reason For Referral Unknown Plan Of Care Date Type Action Status Appointment Karl Olivo BOOKED Future Order: Radiology Order Complete OB Ultrasound > 14 Ordered Weeks ([id number]) Date Type Problem Goal Intervention Status Start [...]
--- OUTSIDE RECORDS SUMMARY | 2017-01-07 06:00 | External Medical Summary | Continuity of Care Document ---
:1993 Author Organization [facility] Address [address] [place], [place] [phone] Phone Care Team Providers Name Role Phone [...] second trimester 24 weeks gestation of - Pap Smear Screening, [...] Care Description For Visit Team Members Luli [place] Encntr for Adebayo-2 [facility]-201 [place]. 700 [facility] [place], normal first 7 Medical [address], preg, second [place], [email or web address] Mukund Isaacs , weeks gestation 120, [place] of [place], tel:[phone] [place], [phone] , [place]. tel: [phone] Luli [place] Encntr for Dwayne-2 [facility] 8- [place]. 700 [facility] [place], normal first 7 Medical [address], preg, second [place], [email or web address] Mukund Isaacs [id number], weeks gestation 120, [place] of [place], tel:[phone] [place], [phone] , [place]. tel:[phone] Luli [place] Maternal care Dwayne-2 Rufino In Womens Ultrasound for excess 8- [place]. 700 [facility], growth, 7 Medical [address] 1522, second tri, [place], unsp20 weeks Mukund Isaacs , gestation of 120, [place], tel:[phone] [place], [phone] , [place]. tel: [phone] Luli [place] Encntr for Dwayne-1 [facility] 2-201 [place]. 700 [facility], normal first 7 Medical [address], preg, second [place], [email or web address] Mukund Isaacs [id number], weeks gestation 120, [place] of [place], tel:[phone] [place], [phone] , [place]. tel:[phone] Luli [place] Encntr for May-1 [facility]- [place]. 700 [facility] [place], normal first 7 Medical [address], preg, second [place], [email or web address] Mukund Isaacs , weeks gestation 120, [place] of [place], tel:[phone], [phone] , [place]. tel: [phone] Luli [place] Encntr for Apr-2 Rufino In Womens suprvsn of 0-201 [place]. 700 [facility] [place], normal first 7 Medical [address], preg, first [place], [email or web address] Mukund Isaacs [id number], weeks gestation 120, [place] of [place], tel:[phone] [place], [phone] , [place]. tel: [phone] Luli [place] Encntr for Apr-0 Rufino In Womens suprvsn of 6-201 [place]. 700 [facility] [place], normal first 7 Medical [address], preg, first [place], trimester8 Mukund Isaacs [id number], weeks gestation 120, [place] of [place], tel:[phone] [place], [phone] , [place]. tel: [phone] Luli [place] Pap Smear Mar-3 Rufino In Womens Screening, 0-201 [place]. 700 [facility] [place], CervixEncntr 7 Medical [address], for suprvsn of [place], normal first Mukund Isaacs [id number], preg, first 120, [place] trimesterLess [place], tel:[phone] than 8 [place], [address] gestation of [id number] , [place]. tel: [phone] Family History Family Member Diagnosis Age At [...] [employer] Plan [place] - Medicaid MC [id number] Social History Type Description Quantity Date Captured Alcohol Use Details No Caffeine Use Details Unknown Tobacco Use Status Smoking Status Former smoker Vital Signs Date / Height Weight BMI Pulse Blood Temperature Respiratory Body Head BMI Time: Rate Pressure Rate Surface Circumference percentile Area Adebayo-27 221.30 39.2 125/84 -2017 lbs 0 mm[Hg] 10:30 kg/m AM eter (2) Chief Complaint And Reason For Visit Unknown Chief Complaint And Reason For Visit Reason For Referral Reason For Referral Unknown Plan Of Care Date Type Action Status Appointment Karl Olivo BOOKED Future Order: Radiology Order Complete OB Ultrasound > 14 Ordered Weeks ([id number]) Date Type Problem Goal Intervention Status Start [...]
--- OUTSIDE RECORDS SUMMARY | 2017-01-07 06:00 | External Medical Summary | Continuity of Care Document ---
:1995 Author Organization [facility] Address [address] [place], [place] [phone] Phone Care Team Providers Name Role Phone [...] third trimester 36 weeks gestation of - Pap Smear Screening, [...] of normal first - preg, third trimester 38 weeks gestation of - Encntr for suprvsn of normal first - preg, third trimester 34 weeks gestation of - Encntr for suprvsn of normal first - preg, third trimester 32 weeks gestation of - Encntr for suprvsn of normal first - preg, third trimester 37 weeks gestation of - Encntr for suprvsn of normal first - preg, third trimester 30 weeks gestation of - GERD Active Procedures Procedure Date OB Visit No Charge - DAY CARE AIDE Results Test Name Date and Time Measure Units Reference Range Abnormal Flag Comments Panel Description: STREPTOCOCCUS, GROUP B CULTURE STREPTOCOCCUS, GROUP SEE NOTE STREPTOCOCCUS, GROUP B CULTURE B CULTURE 11:22:00 MICRO NUMBER: [id number] TEST STATUS: FINAL SPECIMEN SOURCE: VAGINAL/ANORECTAL SPECIMEN QUALITY: ADEQUATE RESULT: No group B Streptococcus isolatedREPORT COMMENT:FASTING:UNKNOWNTest performed at [facility] [id number] [place] [address]Xrmottrf: MARIELLA LEAVITT DO,MPH Advance Directives Directive Yes / No Effective Date File Name Unknown Encounters Encounter Practice Location Reason(s) Diagnoses Date Provider Care Team Description For Visit Members Luli Bhattr for Rufino In Womens suprvsn of normal 2-[address], first preg, third 7 Medical PO Box [email or web address] weeks Center 1522, gestation of Mukund Isaacs, 120, [place], [id number], [place], [place] [id number] tel:[phone] , [place]. [id number] tel: [phone] Luli [place] Encntr for Oct-2 R[facility] In Womens suprvsn of normal 6-201 Er[place]. 700 [facility] [place], first preg, third 7 Medical PO Box [email or web address] weeks Center 1522, gestation of Mukund Isaacs, 120, [place], [place], [id number], [place] [id number] tel: , [place]. tel: [phone] Luli [place] Encntr for Oct-1 Ruf[place] In Womens suprvsn of normal 9-201 [place]. 700 [facility] [place], first preg, third 7 Medical PO Box [email or web address] weeks Center 1522, gestation of Mukund Isaacs, 120, [place], [place], [id number], [place] [id number] tel: , [place]. tel: [phone] Luli [place] Encntr for Oct-0 Rufino Referring In Womens suprvsn of normal 5-201 Ervin. 700 Provider: Health [place], first preg, third 7 Medical Ervin PO Box weeks Center Rufino R, 1522, gestation of Mukund Isaacs, 120, Medical [place], [place] , [place], [facility] 120, [place] [id number] [place], tel: , [place]. [place], tel:. [phone] tel:[phone] Luli [place] Encntr for Sep-2 Ruf[place] In Womens suprvsn of normal 1-201 [place]. 700 [facility] [place], first preg, third 7 Medical PO Box [email or web address] weeks Center 1522, gestation of Mukund Isaacs, 120, [place], [place], [id number], [place] [id number] tel: , [place]. tel: [phone] Luli [place] Encntr for Sep-0 Rufino In Womens suprvsn of normal 7-201 [place]. 700 [facility] [place], first preg, third 7 Medical PO Box [email or web address] weeks Center 1522, gestation of Mukund Isaacs, 120, [place], [place], [id number], [place] [id number] tel: , [place]. tel: [phone] [facility] [place] Vomiting of Aug-2 Rufino In Womens , 4-201 [place]. 700 [facility] [place], unspecifiedEncntr 7 Medical PO Box for suprvsn of Center 1522, normal first [place], preg, third 120, [place], [email or web address] weeks [place], , gestation of [place] [id number] tel: , [place]. tel: [phone] [facility] [place] Vomiting of Aug-2 Rufino In Womens , 2-201 Er[place]. 700 [facility] [place], [email or web address] 7 Medical PO Box weeks gestation Center 1522, of Mukund Isaacs, 120, [place], [place], [id number], [place], [place] tel: , [place]. tel: [phone] [facility] [place] Encntr for Adebayo-2 Rufino In Womens suprvsn of normal 7-201 Ervin. 700 [facility] [place], first preg, 7 Medical PO Box second Center 1522, [email or web address] weeks Mukund Isaacs, gestation of 120, [place], [place], [id number], [place] [id number] tel: , [place]. tel: [phone] [facility] [place] Encntr for Dwayne-2 Rufino In Womens suprvsn of normal 8-201 Ervin. 700 [facility] [place], first preg, 7 Medical PO Box second Center 1522, [email or web address] weeks Mukund Isaacs, gestation of 120, [place], [place], , [place], [place] [id number] tel: , [place]. tel: [phone] Luli [place] Maternal care for Dwayne-2 Ruf[facility] In Womens Ultrasound excess 8-201 [place]. 700 [facility] [place], growth, second 7 Medical PO Box tri, [email or web address] weeks Center 1522, gestation of Mukund Isaacs, 120, [place], [place], [id number], [place] [id number] tel: , [place]. tel: [phone] Luli [place] Encntr for Dwayne-1 Rufino In Womens suprvsn of normal 2-201 Ervin. 700 [facility] [place], first preg, 7 Medical PO Box second Center 1522, [email or web address] weeks Mukund Isaacs, gestation of 120, [place], [place], [id number], [place], [place] [id number] tel: , [place]. tel: [phone] [facility] [place] Encntr for May-1 Rufino In Womens suprvsn of normal 8-201 Ervin. 700 [facility] [place], first preg, 7 Medical PO Box second Center 1522, [email or web address] weeks Mukund Isaacs, gestation of 120, [place], [place], [id number], [place] [id number] tel:+ , [place]. tel: [phone] [facility] [place] Encntr for Apr-2 Rufino In Womens suprvsn of normal 0-201 Ervin. 700 [facility] [place], first preg, first 7 Medical PO Box [email or web address] weeks Center 1522, gestation of Mukund Isaacs, 120, [place], [place], [id number], [place], [place] [id number] tel: , [place]. tel: [phone] [facility] [place] Encntr for Apr-0 Rufino In Womens suprvsn of normal 6-201 Ervin. 700 [facility] [place], first preg, first 7 Medical PO Box [email or web address] weeks Center 1522, gestation of Mukund Isaacs, 120, [place], [place], [id number], [place], [place] [id number] tel: , [place]. tel: [phone] Luli [place] Pap Smear Mar-3 Rufino In Womens Screening, 0-201 [place]. 700 [facility] [place], CervixEncntr for 7 Medical PO Box suprvsn of normal Center 1522, first preg, first [place]und Isaacs, trimesterLess 120, [place], than 8 weeks [place], , gestation of [place], [place] [id number] tel: , [place]. tel: [phone] Family History Family Member Diagnosis Age At [...] [employer] [place] Medicaid [place] [id number] [place] Medicaid MC [id number] Social History Type Description Quantity Date Captured Alcohol Use Details No Caffeine Use Details Unknown Tobacco Use Status Smoking Status Former smoker Vital Signs Date / Height Weight BMI Pulse Blood Temperature Respiratory Body Head BMI Time: Rate Pressure Rate Surface Circumference percentile Area 232.10 41.1 120/2017 lbs 1 mm[Hg] 10:04 kg/m AM eter (2) Chief Complaint And Reason For Visit Unknown Chief Complaint And Reason For Visit Reason For Referral Reason For Referral Unknown Plan Of Care Date Type Action Status Appointment Karl Olivo Ready for Provider Future Order: Radiology Complete OB Ultrasound Ordered Order > 14 Weeks ([id number]) Date Type Problem Goal Intervention Status Start [...]
--- OUTSIDE RECORDS SUMMARY | 2017-01-07 06:01 | External Medical Summary | Continuity of Care Document ---
:1995 Author Organization [facility] Address [address] [place], [place] [phone] Phone Care Team Providers Name Role Phone [...] third trimester 37 weeks gestation of - Pap Smear Screening, [...] of normal first - preg, third trimester 39 weeks gestation of - Encntr for suprvsn [...] For Visit Members Luli [place] Encntr for Nov-0 Rufino In Womens suprvsn of normal 9-201 [place] [place], first preg, third 7 Medical PO Box [email or web address] weeks Center 1522, gestation of Mukund Isaacs, 120, [place], [place], [id number], [place], [place] [id number] tel: , [place]. [address] tel: [phone] Luli [place] Encntr for Nov-0 Rufino In Womens suprvsn of normal 2-201 [facility] [employer] [place], first preg, third 7 Medical PO Box [email or web address] weeks Center 1522, gestation of Mukund Isaacs, 120, [place], [place], [id number], [place], [place] [id number] tel: , [place]. tel: [phone] [facility] [place] Encntr for Oct-2 Rufino In Womens suprvsn of normal 6-201 [place]. 700 [facility] [place], first preg, third 7 Medical PO Box [email or web address] weeks Center 1522, gestation of Mukund Isaacs, 120, [place], [place], , [place] [id number] tel: , [place]. tel: [phone] [facility] [place] Encntr for Oct-1 Rufino In Womens suprvsn of normal 9-201 [place]. 700 [facility] [place], first preg, third 7 Medical PO Box [email or web address] weeks Center 1522, gestation of Mukund Isaacs, 120, [place], [place], [id number], [place] [id number] tel: , [place]. tel: [phone] Luli [place] Encntr for Oct-0 Rufino Referring In Womens suprvsn of normal 5-201 Ervin. 700 Provider: Health [place], first preg, third 7 Medical [place] PO Box [email or web address] weeks Center Rufino R, 1522, gestation of Mukund Isaacs, 120, Medical [facility] , [place], [facility] 120, [place] [id number] [place], tel: , [place]. [place], tel: [phone]. [id number] tel:[phone] Luli [place] Encntr for Sep-2 Rufino In Womens suprvsn of normal 1-201 [place]. 700 [facility] [place], first preg, third 7 Medical PO Box [email or web address] weeks Center 1522, gestation of Mukund Isaacs, 120, [place], [place], , [place] [id number] tel: , [place]. tel: [phone] [facility] [place] Encntr for Sep-0 Rufino In Womens suprvsn of normal 7-201 [place]. 700 [facility] [place], first preg, third 7 Medical PO Box [email or web address] weeks Center 1522, gestation of Mukund Isaacs, 120, [place], [place], , [place] [id number] tel: , [place]. tel: [phone] [facility] [place] Vomiting of Aug-2 Rufino In Womens , 4-201 [place]. 700 [facility] [place], unspecifiedEncntr 7 Medical PO Box for suprvsn of Center 1522, normal first [place], preg, third 120, [place], [email or web address] weeks [place], [id number], gestation of [place], [place] [id number] tel: , [place]. tel: [phone] [facility] [place] Vomiting of Aug-2 Rufino In Womens , 2-201 [place]. 700 [facility] [place], [email or web address] 7 Medical PO Box weeks gestation Center 1522, of Mukund Isaacs, 120, [place], [place], [id number], [place] [id number] tel: , [place]. tel: [phone] [facility] [place] Encntr for Adebayo-2 Rufino In Womens suprvsn of normal 7-201 [place]. 700 [facility] [place], first preg, 7 Medical PO Box second Center 1522, [email or web address] weeks [place], gestation of 120, [place], [place], [id number], [place] [id number] tel: , [place]. tel: [phone] [facility] [place] Encntr for Dwayne-2 Rufino In Womens suprvsn of normal 8-201 [place]. 700 [facility] [place], first preg, 7 Medical PO Box second Center 1522, [email or web address] weeks Mukund Isaacs, gestation of 120, [place], [place], [id number], [place], [place] [id number] tel: , . tel: [phone] [facility] [place] Maternal care for Dwayne-2 Rufino In Womens Ultrasound excess 8-201 [place]. 700 [facility] [place], growth, second 7 Medical PO Box tri, [email or web address] weeks Center 1522, gestation of Mukund Isaacs, 120, [place], [place], [id number], [place], [place] [id number] tel: , [place]. tel: [phone] [facility] [place] Encntr for Dwayne-1 Rufino In Womens suprvsn of normal 2-201 [place]. 700 [facility] [place], first preg, 7 Medical PO Box second Center 1522, [email or web address] weeks [place]acs, gestation of 120, [place], [place], [id number], [place], [place] [id number] tel:+ , [place]. tel: [phone] [facility] [place] Encntr for May-1 Rufino In Womens suprvsn of normal 8-201 [place]. 700 [facility] [place], first preg, 7 Medical PO Box second Center 1522, [email or web address] weeks Mukund Isaacs, gestation of 120, [place], [place], [id number], [place], [place] [id number] tel: , [place]. tel: [phone] [facility] [place] Encntr for Apr-2 Rufino In Womens suprvsn of normal 0-201 [place]. 700 [facility] [place], first preg, first 7 Medical PO Box [email or web address] weeks Center 1522, gestation of Mukund Isaacs, 120, [place], [place], [id number], [place], [place] [id number] tel: , [place]. tel: [phone] [facility] [place] Encntr for Apr-0 Rufino In Womens suprvsn of normal 6-201 [place]. 700 [facility] [place], first preg, first 7 Medical PO Box [email or web address] weeks Center 1522, gestation of Mukund Isaacs, 120, [place], [place], [id number], [place], [place] [id number] tel: , [place]. tel: [phone] [facility] [place] Pap Smear Mar-3 Rufino In Womens Screening, 0-201 [place]. 700 [facility] [place], CervixEncntr for 7 Medical PO Box suprvsn of normal Center 1522, first preg, first [place], trimesterLess 120, [place], than 8 weeks [place], , gestation of [place], [place] [id number] tel: , [place]. tel: [phone] Family History Family Member Diagnosis Age At [...] Record Payers Payer name Insurance type Covered democrat ID Authorization(s) [employer] [place] - Medicaid MC [id number] [employer] [place] Medicaid MC [id number] Social History Type Description Quantity Date Captured Alcohol Use Details No Caffeine Use Details Unknown Tobacco Use Status Smoking Status Former smoker Vital Signs Date / Height Weight BMI Pulse Blood Temperature Respiratory Body Head BMI Time: Rate Pressure Rate Surface Circumference percentile Area 230.80 40.8 131/86 -2017 lbs 8 mm[Hg] 11:20 kg/m AM eter (2) 230.80 40.8 -2017 lbs 8 11:20 kg/m AM eter (2) Chief Complaint And Reason For Visit Unknown Chief Complaint And Reason For Visit Reason For Referral Reason For Referral Unknown Plan Of Care Date Type Action Status Future Order: Radiology Order Complete OB Ultrasound > 14 Ordered Weeks ([id number]) Date Type Problem Goal Intervention Status Start [...]
--- OUTSIDE RECORDS SUMMARY | 2017-01-07 06:01 | External Medical Summary | Continuity of Care Document ---
:1995 Author Organization [facility] Address [address] [place], [place] [phone] Phone Care Team Providers Name Role Phone Gladis Conrad DO Unavailable Unavailable Allergies, Adverse Reactions, Alerts Substance Reaction Severity Status No Known Drug Allergies Unknown Active Medications Medication Instructions Dosage Effective Dates Status Comments (start - stop) Zofran 4 mg take 1 by Oral Not Available - Active tablet route every 6 hours as needed 28 mg take 1 tablet by Not Available - Active iron-800 mcg oral route every tablet day Prevacid 30 mg take 1 capsule by 30 MG - No Longer capsule,delayed oral route every Active release day before a meal Problems Condition Effective Dates (start - stop) Clinical Status Vomiting of , unspecified - Encntr for suprvsn of normal first - preg, third trimester 28 weeks gestation of - Pap Smear [...] Reference Range Abnormal Flag Comments Panel Description: Glucose [Mass/volume] in Serum or Plasma --1 hour post 50 g glucose PO GLUCOSE, 117 mg/dL <140 N Test performed at [facility] GESTATIONAL SCREEN 11:50:00 [employer] [id number] (50G)-[address] [place] [address]Bxiqvdxv: MARIELLA LEAVITT DO,MPH Panel Description: HEMOGLOBIN + HEMATOCRIT HEMOGLOBIN 11:50:00 11.3 g/dL 11.7-15.5 L HEMATOCRIT 11:50:00 32.8 % 35.0-45.0 L REPORT COMMENT:FASTING :NOTest performed at [facility] [id number] [place] [address]Vzhiwbke: MARIELLA LEAVITT DO,MPH Advance Directives Directive Yes / No Effective Date File Name Unknown Encounters Encounter Practice Location Reason(s) Diagnoses Date Provider Care Description For Visit Team Members Luli [place] Encntr for suprvsn Sep-0 Ruf[place] In Womens of normal first 7-[address], preg, third 7 Medical PO Box [email or web address] weeks Center 1522, gestation of Mukund Isaacs, 120, [place], [place], [id number], [place], [place] [id number] tel:+[phone] , [place]. [id number] tel: [phone] Luli [place] Vomiting of Aug-2 Rufino In Womens , 4-201 [place]. 700 [facility] [place], unspecifiedEncntr 7 Medical PO Box for suprvsn of Center 1522, normal first preg, [place], third [email or web address] 120, [place], weeks gestation of [place], [id number], [place], [place] [id number] tel:+ , [place]. tel: [phone] [facility] [place] Vomiting of Aug-2 Rufino In Womens , 2-201 [place]. 700 [facility] [place], [email or web address] 7 Medical PO Box weeks gestation of Center 1522, Mukund Isaacs, 120, [place], [place], [id number], [place] [id number] tel:+ , [place]. tel: [phone] [facility] [place] Encntr for suprvsn Adebayo-2 Rufino In Womens of normal first 7-201 [place]. 700 [facility] [place], preg, second 7 Medical PO Box weeks Center 1522, gestation of Mukund Isaacs, 120, [place], [place], [id number], [place] [id number] tel:+ , [place]. tel: [phone] [facility] [place] Encntr for suprvsn Dwayne-2 Rufino In Womens of normal first 8-201 [place]. 700 [facility] [place], preg, second 7 Medical PO Box [email or web address] weeks Center 1522, gestation of Mukund Isaacs, 120, [place], [place], [id number], [place] [id number] tel:+ , [place]. tel: [phone] [facility] [place] Maternal care for Dwayne-2 Ruf[place] In Womens Ultrasound excess 8-201 [place]. 700 Health [place], growth, second 7 Medical PO Box tri, [email or web address] weeks Center 1522, gestation of [place]und Isaacs, 120, [place], [place], [id number], [place], [place] [id number] tel:+ , [place]. tel:[phone] [facility] [place] Encntr for suprvsn Dwayne-1 Rufino In Womens of normal first 2-201 [place]. 700 Health [place], preg, second 7 Medical PO Box [email or web address] weeks Center 1522, gestation of Mukund Isaacs, 120, [place], [place], [id number], [place], [place] [id number] tel: , [place]. tel: [phone] [facility] [place] Encntr for suprvsn May-1 Rufino In Womens of normal first 8-201 [place]. 700 Health [place], preg, second 7 Medical PO Box [email or web address] weeks Center 1522, gestation of Mukund Isaacs, 120, [place], [place], [id number], [place], [place] [id number] tel: , [place]. tel: [phone] [facility] [place] Encntr for suprvsn Apr-2 Ruf[place] In Womens of normal first 0-201 [place]. 700 Health [place], preg, first 7 Medical PO Box [email or web address] weeks Center 1522, gestation of [place]und Isaacs, 120, [place], [place], [id number], [place] [id number] tel: , [place]. tel: [phone] Luli [place] Encntr for suprvsn Apr-0 Rufino In Womens of normal first 6-201 [place]. 700 Health [place], preg, first 7 Medical PO Box trimester8 weeks Center 1522, gestation of Mukund Isaacs, 120, [place], [place], , [place] [address] tel: , [place]. tel: [phone] Luli [place] Pap Smear Mar-3 Rufino In Womens Screening, 0-201 [place]. 700 Health [place], CervixLess than 8 7 Medical PO Box weeks gestation of Center 1522, pregnancyEncntr [place]und [place]acs, for suprvsn of 120, [place], normal first preg, [place], , first trimester [place], [place] [address] tel: , . tel: [phone] Family History Family Member Diagnosis Age At [...] Unknown Payers Payer name Insurance type Covered democrat ID Authorization(s) [employer] [place] - Medicaid MC [id number] Social History Type Description Quantity Date Captured Alcohol Use Details No Caffeine Use Details Unknown Tobacco Use Status Smoking Status Former smoker Vital Signs Date / Height Weight BMI Pulse Blood Temperature Respiratory Body Head BMI Time: Rate Pressure Rate Surface Circumference percentile Area 221.00 39.1 132/80 -2017 lbs 4 mm[Hg] 10:49 kg/m AM eter (2) Chief Complaint And Reason For Visit Unknown Chief Complaint And Reason For Visit Reason For Referral Reason For Referral Unknown Plan Of Care Date Type Action Status Appointment Karl Olivo BOOKED Future Order: Radiology Order Complete OB Ultrasound > 14 Ordered Weeks ([id number]) Date Type Problem Goal Intervention Status Start [...]
--- OUTSIDE RECORDS SUMMARY | 2017-01-07 06:01 | External Medical Summary | Continuity of Care Document ---
:1993 Author Organization [facility] Allergies Active Description Code Type Severity Reaction Onset Reported/ Identified Relationship Clinical to Patient Status Yes No Known 35265 3 N/A N/A Drug 0 Allergies Medications Medication Packaging Start Date Stop Date Route Dosage Sig Tablet 10/12/2016 11/24/2016 ZOFRAN take 1 by Oral route every 6 hours as needed Capsule 10/14/2016 10/27/2016 PREVACID take 1 capsule by oral route every day before a meal Problems Date Dx Coded Attending Type Code Diagnosis Diagnosed By 08/18/2016 Ervin Joy O36.62x0 Maternal care for excess growth, second tri, unsp 08/18/2016 Ervin Joy Z3A.20 20 weeks gestation of Procedures Code Description Performed By Performed On 08/18/2016 13395 Ultrasnd exam of preg uterus, compl Results Encounters ACCT No. Visit Discharge Status Pt. Type Provider Facility Loc./Unit Complaint Date/Time [id number] 12/16/2016 12/16/2016 [facility] Outpatient Rufino, 10:50:00 23:59:59 Ervin Oswald [id number] 12/09/2016 12/09/2016 [facility] Outpatient Rufino, 10:00:00 23:59:59 Ervin Oswald [id number] 11/25/2016 11/25/2016 [facility] Outpatient Rufino, 10:20:00 23:59:59 Ervin Oswald [id number] 11/11/2016 11/11/2016 [facility] Outpatient Rufino, 10:20:00 23:59:59 Ervin Oswald [id number] 10/28/2016 10/28/2016 [facility] Outpatient Rufino, 10:20:00 23:59:59 Ervin Oswald [id number] 10/15/2016 10/15/2016 [facility] Outpatient Rufino, 08:45:00 23:59:59 Ervin Oswald [id number] 10/14/2016 10/14/2016 [facility] Outpatient Rufino, 10:20:00 23:59:59 Ervin Oswald [id number] 10/12/2016 10/12/2016 [facility]uf[place], 10:10:00 23:59:59 Ervin Oswald [id number] 10/11/2016 10/11/2016 [facility] [place], 20:19:00 23:59:59 Ervin Oswald [id number] 09/16/2016 09/16/2016 [facility] [place], 10:20:00 23:59:59 Ervin Oswald [id number] 09/12/2016 09/12/2016 [facility] Out[facility] [place], 22:30:00 23:59:59 Ervin Oswald [id number] 08/18/2016 08/18/2016 [facility] Out[facility] [place], 11:30:00 23:59:59 Ervin Oswald [id number] 08/18/2016 08/18/2016 [facility] Out[facility] [place], 11:15:00 23:59:59 Ervin Oswald [id number] 08/02/2016 08/02/2016 [facility] Out[facility] [place], 14:45:00 23:59:59 Ervin Oswald [id number] 07/08/2016 07/08/2016 [facility] [place], 08:40:00 23:59:59 Ervin Oswald [id number] 06/18/2016 06/18/2016 [facility] Outpatient Banuelos, 14:26:00 23:59:59 Shilpa Luna [id number] 06/10/2016 06/10/2016 [facility] [place], 15:00:00 23:59:59 Ervin Oswald [id number] 05/27/2016 05/27/2016 [facility] [place], 15:15:00 23:59:59 Ervin Oswald [id number] 05/27/2016 05/27/2016 [facility] Out[facility] [place], 13:53:00 23:59:59 Ervin Oswald [id number] 05/25/2016 05/25/2016 [facility] Out[facility] [place], 15:02:00 23:59:59 Ervin Oswald [id number] 05/20/2016 05/20/2016 [facility] Out[facility] [place], 15:15:00 23:59:59 Ervin Oswald [id number] 12/30/2016 Document 10:00:00 Registration [id number] 12/23/2016 Document 10:30:00 Registration
--- OUTSIDE RECORDS SUMMARY | 2017-01-07 06:01 | External Medical Summary | Continuity of Care Document ---
:1995 Author Organization [facility] Address [address] [place], [place] [id number] Phone Care Team Providers Name Role Phone [...] [facility] of normal first 7-[address] [place] [address] Health PA, preg, third 7 Medical [address] [email or web address] weeks Center 1522, gestation of Mukund Isaacs, [address], [place], [place], , [place], [place] [id number] tel: , [place]. tel: [phone] [facility] [place] Vomiting of Aug-2 [facility] In Womens , 4-[address] [address] [place], unspecifiedEncntr 7 Medical PO Box for suprvsn of Center 1522, normal first preg, Mukund Isaacs, third [email or web address] 120, [place], weeks gestation of [place], , [place], [place] [id number] tel: , [place]. tel: [phone] [facility] [place] Vomiting of Aug-2 [facility] In Womens , 2-[address] [place]. [facility] Liefer[place] PA, [email or web address] 7 Medical PO Box weeks gestation of [place] 1522, Mukund Isaacs, 120, [place], [place], , [place] [id number] tel: , [place]. tel: [phone] Luli [place] Aug-2 [facility] In Womens 1-[address] [address] [place], 7 Medical [address] [place] [address], Mukund Isaacs, 120, [place], [place], , [place] [id number] tel:+ , [place]. tel: [phone] [facility] [place] Encntr for suprvsn Adebayo-2 [facility] In Womens of normal first 7-201 [place]. 700 Health PA, preg, second 7 Medical PO Box [email or web address] weeks Center 1522, gestation of Mukund Isaacs, 120, [place], [place], [id number], [place] [id number] tel:+ , [place]. tel: [phone] [facility] [place] Encntr for suprvsn Dwayne-2 Rufino In Womens of normal first 8-201 [address]. 700 Health PA, preg, second 7 Medical PO Box [email or web address] weeks Center 1522, gestation of Mukund Isaacs, 120, [place], [place], , [place], [place] [id number] tel:+ , [place]. tel: [phone] [facility] [place] Maternal care for Dwayne-2 [facility] In Womens Ultrasound excess 8-201 [place]. 700 Health PA, growth, second 7 Medical PO Box tri, [email or web address] weeks Center 1522, gestation of Mukund Isaacs, 120, [place], [place], , [place] [id number] tel:+ , [place]. tel: [phone] [facility] [place] Encntr for suprvsn Dwayne-1 Rufino In Womens of normal first 2-201 [place]. 700 Health PA, preg, second 7 Medical PO Box [email or web address] weeks Center 1522, gestation of Mukund Isaacs, 120, [place], [place], , [place], [place] [id number] tel:+ , [place]. tel: [phone] [facility] [place] Encntr for suprvsn May-1 [facility] In Womens of normal first 8-201 [place]. 700 Health PA, preg, second 7 Medical PO Box [email or web address] weeks Center 1522, gestation of Mukund Isaacs, 120, [place], [place], [id number], [place] [id number] tel: , [place]. tel: [phone] [facility] [place] Encntr for suprvsn Apr-2 [facility] In Womens of normal first 0-201 [place]. 700 Health PA, preg, first 7 Medical PO Box [email or web address] weeks Center 1522, gestation of Mukund Isaacs, 120, [place], [place], [id number], [place] [id number] tel:+ , [place]. tel: [phone] [facility] [place] Encntr for suprvsn Apr-0 [facility] In Womens of normal first 6-201 [place]. 700 Health PA, preg, first 7 Medical PO Box [email or web address] weeks Center 1522, gestation of Mukund Isaacs, 120, [place], [place], [id number], [place] [id number] tel: , [place]. tel: [phone] [facility] [place] Pap Smear Mar-3 [facility] In [facility]omens Screening, 0-[address] [place]. 700 Health PA, CervixLess than 8 7 Medical PO Box weeks gestation of Center 1522, pregnancyEncntr Mukund Isaacs, for suprvsn of 120, [place], normal first preg, [place], [id number], first trimester [place], [place] [id number] tel:+ , [place]. tel: [phone] Family History Family Member Diagnosis Age At [...] Unknown Payers Payer name Insurance type Covered constitution party ID Authorization(s) [employer] [place] - Medicaid [place] [id number] Social History Type Description Quantity Date Captured [...] Complete OB Ultrasound > 14 Ordered Weeks ([id number]) Date Type Problem Goal Intervention Status Start [...]
[2017-01-07] MEDS: LR 1,000 ML IV PRN ×4 (06:28→16:45)
[2017-01-07] MEDS: D5LR 1,000 ML IV PRN ×2 (06:41→16:55)
[2017-01-07 06:44] VITALS: BMI 41.8
[2017-01-07] MEDS ORDERED: OXYTOCIN DRIP 30 UNIT/500 ML ML IV PRN (06:45)
--- NOTE | 2017-01-07 08:44 | Anesthesia Preoperative Report ---
Anesthesia Epidural/Spinal Rec - Date and Time Date: 01/07/17 Preoperative Diagnosis: Term Induction Procedure: Labor Epidural Plan: Epidural - Vital Signs Vital Signs: Temperature 98.6 F 01/07/17 06:30 Pulse Rate 95 01/07/17 06:30 Respiratory Rate 20 01/07/17 06:30 Blood Pressure 134/88 01/07/17 06:30 Pulse Oximetry 98 01/07/17 06:30 /Para: P:0 - Medictaions & Allergies Inpatient Medications: Current Medications Acetaminophen (Tylenol) 500 - 1,000 mg PO Q4H PRN PRN Reason: Pain Al Hydroxide/Mg Hydroxide (Maalox Plus) 30 ml PO Q3H PRN PRN Reason: Indigestion Calcium Carbonate (Tums) 500 - 1,000 mg PO Q2H PRN PRN Reason: Indigestion Carboprost Tromethamine (Hemabate) 250 mcg IM O PRN PRN Reason: .Downtime Lactated Ringer's (Lactated Ringers) 1,000 mls @ 999 mls/hr IV .Q1H1M PRN Last Admin: 01/07/17 06:28 Dose: 999 mls/hr Oxytocin (Pitocin Drip) 30 unit in 500 mls @ 2 mls/hr IV .Q24H PRN; Protocol PRN Reason: Induction/Augmentation Last Admin: 01/07/17 06:41 Dose: 2 mls/hr Dextrose/Lactated Ringer's (Dextrose 5%-Lactated Ringers) 1,000 mls @ 125 mls/ hr IV .Q8H PRN PRN Reason: Labor Last Admin: 01/07/17 06:41 Dose: 125 mls/hr Lidocaine HCl (Xylocaine-Mpf 1% Vial) 0.2 mg ID O PRN PRN Reason: IV Start Methylergonovine Maleate (Methergine) 0.2 mg IM O PRN Misoprostol (Cytotec) 800 mcg ID ONCE PRN Allergies/Adverse Reactions: Allergies Allergy/AdvReac Type Severity Reaction Status Date / Time No Known Allergies Allergy Unverified 05/25/16 19:52 - Home Medications Home Medications: Home Medications Medication Instructions Recorded Confirmed Type Vit 108/Iron/Folic AC 1 each PO DAILY 12/09/16 01/07/17 History [ One Tablet] - Medical History Respiratory: DENIES: Asthma, Bronchitis, Chronic Obstructive Pulmonary Disease (COPD), Dyspnea, Orthopnea, Pulmonary Embolism, Pneumonia, Upper Respiratory Infection, Pulmonary Edema, Sleep Apnea, Tuberculosis, Other Cardiovascular: DENIES: Abnormal EKG, Angina, Arrhythmia, Congestive Heart Failure, Coronary Artery Disease, Heart Murmur, Hypertension, Hypotension, High Cholesterol, Myocardial Infarction, Rheumatic Fever, Valvular Heart Disease, Other Gastrointestional: Reports: Gastroesophageal Reflux Disease DENIES: Obstructive Bowel, Hepatitis, Cirrhosis, Nausea or Vomiting Present, Gastrointestinal Bleeding, Hiatal Hernia, Ulcer, Morbid Obesity, Other Neuro/Musculoskeletal: Reports: Other (R wrist surgeries) Denies: HX.MS.OSAR, Back Problems, Cerebrovascular Accident, Depression, Headaches, Loss of Consciousness, Muscle Weakness, Neuromuscular Disorder, Paralysis, Paresthesia, Syncope, Seizures Renal/Endocrine: DENIES: Diabetes Mellitus Type 1, Diabetes Mellitus Type 2, Renal Failure, Dialysis, Thyroid Disease, Weight Loss, Weight Gain, Other Other History: Reports: Now DENIES: Anesthesia Reactions - Surgical History GI Surgery/Treatments: Reports: Cholecystectomy (2011) Reproductive Surgery/Treatment: DENIES: Breast Augmentation/Reduction, Section Anesthesia Reactions: None Hx Family Anesthesia Reaction: No History of Motion Sickness: No - Social History Smoking Status: Former smoker Second Hand Exposure: No Substance Use Type: does not use Alcohol Intake: former Alcohol Intake Frequency: does not drink Hx Chewing Tobacco Use: No - Pertinent Findings Lab Data: CBC and BMP 01/07/17 06:26 - Physical Exam Respiratory Exam: lungs clear, bilateral breath sounds equal Cardiovascular Exam: regular rate and rhythm, no murmur - Airway Assessment Mallampati Score: II TMD: 3 Fingerbreadths Overall Assessment: may be difficult mask vent, may be difficult intubation - ASA ASA Score: 2 - Discussion Discussion: Discussed risks/options/alternatives of anesthesia and questions answered. Patient consents. Nursing pain assessment noted. Anesthesia Discussion: spouse Attestation Statement: Prior to the delivery of any anesthetic medication, I examined the patient, developed the plan, obtained the patient's consent and discussed the risk and benefits of the procedure with the patient/guardian.
--- NOTE | 2017-01-07 09:16 | OB/GYN Progress Note ---
- Pelvic Exam Dilation (cm): 2 Effacement (%): 50 station: -3 Amniotic membrane status: Ruptured Comments: AROM clear fluid moderate amount - Contractions Monitor mode: External Contraction pattern: Regular Contraction intensity: Moderate - Status status: Category l - Assessment and Plan Assessment: induction ongoing Plan: continuous present management
[2017-01-07] MEDS ORDERED: CITRIC ACID/SODIUM CITRATE 30ml PO ONE (15:00)
[2017-01-07] MEDS ORDERED: CEFAZOLIN PREMIX (MC ONLY) 2 GM/50 ML BAG IV ONE (15:00)
[2017-01-07] MEDS ORDERED: FAMOTIDINE PB 20 MG/50 ML BAG IV ONE (15:00)
[2017-01-07] MEDS ORDERED: FentaNYL 100 MCG/2 ML INJECTION ONE (15:07)
[2017-01-07] MEDS ORDERED: EPHEDRINE 50mg/ml INJECTION ONE (15:07)
[2017-01-07] MEDS ORDERED: LIDOCAINE 2%/EPI 1:200,000 20ml SDV PF ONE (15:07)
[2017-01-07] MEDS ORDERED: MORPHINE SULFATE PF 5mg/10ml INJ (Duramorph) ONE (15:07)
[2017-01-07] MEDS ORDERED: ONDANSETRON 4 MG/2 ML INJECTION ONE (15:18)
[2017-01-07] MEDS ORDERED: NALOXONE 0.4 MG/ML INJECTION IVP PRN (15:29)
[2017-01-07] MEDS ORDERED: DiphenhydrAMINE 50 MG/ML INJECTION IVP PRN (15:29)
[2017-01-07] MEDS ORDERED: NALBUPHINE 10 MG/ML INJECTION IVP PRN (15:29)
[2017-01-07] MEDS ORDERED: ROPIVACAINE 1% 10MG/ML INJ 200 MG, SUFentanil 50 MCG in NS 100 ML EPI PRN (15:29)
[2017-01-07] MEDS ORDERED: ONDANSETRON 4 MG/2 ML INJECTION IVP PRN ×3 (15:29→16:53)
[2017-01-07] MEDS ORDERED: NALOXONE 2 MG/2 ML INJECTION PFS IVP PRN (15:29)
--- NOTE | 2017-01-07 15:33 | Anesthesia Preoperative Report ---
Anesthesia Preoperative Record - Date and Time Date: 01/07/17 Preoperative Diagnosis: nonreassuring heart tones Proposed Procedure: emergency csection NPO Since Date: 01/06/17 NPO Since Time: 23:00 Allergies/Adverse Reactions: Allergies Allergy/AdvReac Type Severity Reaction Status Date / Time No Known Allergies Allergy Unverified 05/25/16 19:52 - Vital Signs Vital Signs: Temperature 98.6 F 01/07/17 06:30 Pulse Rate 95 01/07/17 06:30 Respiratory Rate 20 01/07/17 06:30 Blood Pressure 134/88 01/07/17 06:30 Pulse Oximetry 98 01/07/17 06:30 Height and Weight: Height 1.6 m Weight 107.048 kg Body Mass Index 41.8 - Medications Inpatient Medications: Current Medications Acetaminophen (Tylenol) 500 - 1,000 mg PO Q4H PRN PRN Reason: Pain Al Hydroxide/Mg Hydroxide (Maalox Plus) 30 ml PO Q3H PRN PRN Reason: Indigestion Calcium Carbonate (Tums) 500 - 1,000 mg PO Q2H PRN PRN Reason: Indigestion Carboprost Tromethamine (Hemabate) 250 mcg IM O PRN PRN Reason: .Downtime Diphenhydramine HCl (Benadryl) 25 - 50 mg IVP Q3H PRN PRN Reason: Itching Lactated Ringer's (Lactated Ringers) 1,000 mls @ 999 mls/hr IV .Q1H1M PRN Last Admin: 01/07/17 14:09 Dose: 999 mls/hr Oxytocin (Pitocin Drip) 30 unit in 500 mls @ 2 mls/hr IV .Q24H PRN; Protocol PRN Reason: Induction/Augmentation Last Admin: 01/07/17 06:41 Dose: 2 mls/hr Dextrose/Lactated Ringer's (Dextrose 5%-Lactated Ringers) 1,000 mls @ 125 mls/ hr IV .Q8H PRN PRN Reason: Labor Last Infusion: 01/07/17 15:00 Dose: Infused Ropivacaine 200 mg/ Sufentanil Citrate 50 mcg/ Sodium Chloride 121 mls @ 0 mls/ hr EPI PRN PRN; As Directed PRN Reason: Protocol Lidocaine HCl (Xylocaine-Mpf 1% Vial) 0.2 mg ID O PRN PRN Reason: IV Start Methylergonovine Maleate (Methergine) 0.2 mg IM O PRN Misoprostol (Cytotec) 800 mcg [place] ONCE PRN Nalbuphine HCl (Nubain) 5 - 10 mg IVP Q4H PRN PRN Reason: Pain,Severe Itching,or Nausea Stop: 01/08/17 15:28 Naloxone HCl (Narcan) 0.1 mg IVP Q2M PRN PRN Reason: Respiratory distress Naloxone HCl (Narcan) 0.1 mg IVP Q2M PRN Stop: 01/08/17 15:28 Ondansetron HCl (Zofran) 4 mg IVP Q6H PRN PRN Reason: Nausea &/or vomiting Ondansetron HCl (Zofran) 4 mg IVP Q4H PRN PRN Reason: Nausea &/or vomiting Stop: 01/08/17 15:28 Home Medications: Home Medications Medication Instructions Recorded Confirmed Type Vit 108/Iron/Folic AC 1 each PO DAILY 12/09/16 01/07/17 History [ One Tablet] - Medical History Respiratory: DENIES: Asthma, Bronchitis, Chronic Obstructive Pulmonary Disease (COPD), Dyspnea, Orthopnea, Pulmonary Embolism, Pneumonia, Upper Respiratory Infection, Pulmonary Edema, Sleep Apnea, Tuberculosis, Other Cardiovascular: DENIES: Abnormal EKG, Angina, Arrhythmia, Congestive Heart Failure, Coronary Artery Disease, Heart Murmur, Hypertension, Hypotension, High Cholesterol, Myocardial Infarction, Rheumatic Fever, Valvular Heart Disease, Other Gastrointestional: Reports: Gastroesophageal Reflux Disease DENIES: Obstructive Bowel, Hepatitis, Cirrhosis, Nausea or Vomiting Present, Gastrointestinal Bleeding, Hiatal Hernia, Ulcer, Morbid Obesity, Other Neuro/Musculoskeletal: Reports: Other (R wrist surgeries) Denies: HX.MS.OSAR, Back Problems, Cerebrovascular Accident, Depression, Headaches, Loss of Consciousness, Muscle Weakness, Neuromuscular Disorder, Paralysis, Paresthesia, Syncope, Seizures Renal/Endocrine: DENIES: Diabetes Mellitus Type 1, Diabetes Mellitus Type 2, Renal Failure, Dialysis, Thyroid Disease, Weight Loss, Weight Gain, Other Other History: Reports: Now DENIES: Anesthesia Reactions - Surgical History GI Surgery/Treatments: Reports: Cholecystectomy (2011) Surgery/Treatment: DENIES: Dialysis Reproductive Surgery/Treatment: DENIES: Breast Augmentation/Reduction, Section Anesthesia Reactions: None Hx Family Anesthesia Reaction: No History of Motion Sickness: No - Social History Smoking Status: Former smoker Hx Chewing Tobacco Use: No Second Hand Exposure: No Substance Use Type: does not use Alcohol Intake: former Alcohol Intake Frequency: does not drink - Pertinent Findings Laboratory: CBC and BMP 01/07/17 06:26 EKG: Sinus Rhythm - Physical Exam Respiratory Exam: Present: lungs clear, bilateral breath sounds equal Cardiovascular Exam: Present: regular rate and rhythm, no murmur - Airway Assessment Mallampati Score: II TMD: 3 Fingerbreadths Overall Assessment: may be difficult mask vent, may be difficult intubation - ASA ASA Score: 2 - Plan Regional/Trunk Block: Epidural - Discussion Discussion: Discussed risks/options/alternatives of anesthesia and questions answered. Patient consents. Nursing pain assessment noted. Present for Discussion: spouse Attestation Statement: Prior to the delivery of any anesthetic medication, I examined the patient, developed the plan, obtained the patient's consent and discussed the risk and benefits of the procedure with the patient/guardian.
[2017-01-07] MEDS ORDERED: OXYTOCIN BOLUS BAG 30 UNIT/500 ML ML IV SCH (16:00)
[2017-01-07] MEDS ORDERED: HYDROCORTISONE 2.5% CREAM 30gm RECTALLY PRN (16:53)
[2017-01-07] MEDS ORDERED: OXYTOCIN DRIP 30 UNIT/500 ML ML IV SCH (16:53)
[2017-01-07] MEDS ORDERED: METOCLOPRAMIDE 10mg/2ml INJECTION IVP PRN (16:53)
[2017-01-07] MEDS ORDERED: SIMETHICONE 80 MG CHEWABLE TABLET PO PRN (16:53)
[2017-01-07] MEDS ORDERED: DiphenhydrAMINE 25 MG CAPSULE PO PRN (16:53)
[2017-01-07] MEDS ORDERED: SALINE FLUSH 10ml SYRINGE IV PRN (16:53)
[2017-01-07] MEDS ORDERED: MEASLES-MUMPS-RUBELLA VACCINE 0.5ml INJECTION SQ ONE (16:53)
[2017-01-07] MEDS: D5LR 1,000 ML IV SCH (17:00)
--- NOTE | 2017-01-07 17:28 | Anesthesia Postoperative Note ---
- Date and Time Date: 01/07/17 Time: 16:40 - Status Patient Participated in Evaluation: Patient Participated in Person Vital Signs: Temperature 98.6 F 01/07/17 06:30 Pulse Rate 95 01/07/17 06:30 Respiratory Rate 20 01/07/17 06:30 Blood Pressure 134/88 01/07/17 06:30 Pulse Oximetry 98 01/07/17 06:30 Respiratory Function: Airway Patent EKG: Sinus Rhythm Mental Status: Alert and Oriented Pain Intensity: 2 Hydration: IV Infusing Complications During Recover: None Apparent - Follow-Up Instructions Instructions: Per Surgeon
[2017-01-07] MEDS: SIMETHICONE 80 MG CHEWABLE TABLET PO SCH ×2 (18:44→21:53)
[2017-01-07] MEDS: IBUPROFEN 800 MG TABLET PO PRN (19:02)
[2017-01-07] MEDS: HYDROCODONE/APAP 5mg/325mg TABLET PO PRN (21:51)
[2017-01-08] MEDS: IBUPROFEN 800 MG TABLET PO PRN ×3 (03:36→21:48)
[2017-01-08] MEDS: HYDROCODONE/APAP 5mg/325mg TABLET PO PRN ×5 (03:37→21:48)
[2017-01-08] MEDS: D5LR 1,000 ML IV SCH (09:01)
--- NOTE | 2017-01-08 10:49 | Progress Note ---
OB PP Progress Note Free Text - Date Date: 01/08/17 - Progress Note Progress Note: doing well vss af disc surgery q&a-krb
[2017-01-08] MEDS: SIMETHICONE 80 MG CHEWABLE TABLET PO SCH ×4 (12:04→21:48)
[2017-01-08] MEDS: DOCUSATE CALCIUM 240 MG CAPSULE PO SCH (12:04)
--- NOTE | 2017-01-08 13:44 | Operative Note ---
DATE OF SURGERY: 01/07/2017 PREOPERATIVE DIAGNOSES 1. 21-year-old white female G1, P0 at 40.3 weeks gestational age. 2. Pitocin induction for postdates. 3. Artificial rupture of membranes. 4. Intrauterine pressure monitor. 5. Direct monitor. 6. Nonreassuring heart tones and secondary arrest of dilation at 5 cm. POSTOPERATIVE DIAGNOSIS 1. Male infant 3254 g, 8/9/9 Apgars (O'Wilkinson). 2. Umbilical cord looped over left shoulder. PROCEDURE: Emergent low transverse section for heart tones. SURGEON: Ervin Joy MD [employer]: Opal Patiño MD ESTIMATED BLOOD LOSS: 800 mL. ANESTHESIA: Epidural dosing by Piero Rodriguez CRNA BRIEF HISTORY This is a patient of mine who was brought in for postdates induction. Her cervix was initially a couple centimeters dilated. She is a primip. Pitocin reached a maximum of 20 milliunits/min. AROM occurred at 9:11 a.m. In the early afternoon she was still 5 cm so I placed an IUPM. We began having heart tone issues so I replaced the IUPM and did a DFM. Pitocin was turned off. It was restarted later and then turned off again. Emergent was done for sustained bradycardia. DESCRIPTION OF PROCEDURE After adequate epidural anesthesia, the patient was prepped and draped in the left lateral decubitus position. A Pfannenstiel skin incision was made with a sharp knife and carried down the fascia, which was incised transversely with the Kaye scissors. The rectus fascia was bluntly and sharply dissected off the rectus muscle. The rectus muscle was divided, and the peritoneum was isolated, elevated, entered with the Metzenbaum scissors and extended cephalad and caudad. The bladder blade was then inserted. The lower vesicouterine fold of the peritoneum was isolated and incised transversely. The bladder was bluntly dissected off the lower uterine segment. The bladder blade was reinserted. Then using a sharp knife, a transverse incision was made in the lower uterine segment. This was extended with my fingers. Male was delivered from the vertex position without difficulty. There was a loop of cord over the left shoulder similar to carrying a purse. The infant was in the transverse position and had a large amount of caput but was only 5 cm dilated immediately prior to the . Infant was rotated to OA and delivered without difficulty and bulb suctioned after delivery of the head and then again after delivery of the body. The was received by Dr. Julita Wright of Pediatrics. Placenta was removed manually and was intact. The placenta was expressed manually and was intact. The uterus was then allowed to fall upon the external abdominal wall. The endometrial cavity was cleansed using moist lap sponges. The uterus was closed using 0-Monocryl in a running locking fashion. Hemostasis was confirmed. The bladder flap was then reapproximated with the visceral peritoneum using 3-0 Vicryl in a running nonlocking fashion. The posterior cul-de-sac was cleansed of old blood clots and the tubes and ovaries were examined and found to be normal in size, shape and appearance. After hemostasis was again confirmed, the uterus was then carefully returned to the abdominal cavity. The abdomen was then closed in layers. The peritoneum was closed using 2-0 Vicryl in running nonlocking fashion. The fascia was closed using 0-Vicryl in a running nonlocking fashion bilaterally from the lateral aspects medially. Hemostasis was achieved with the subcutaneous tissue. 3-0 Vicryl was used to reapproximate Ann-Marie's fascia. The skin was closed using wide pramod in a serial fashion. The patient tolerated the procedure well and went to the recovery room in stable condition. Pad, sponge and needle counts were correct and urine postop was clear and free flowing. MTDD
[2017-01-09] MEDS: HYDROCODONE/APAP 5mg/325mg TABLET PO PRN ×5 (01:40→22:06)
[2017-01-09] MEDS: DOCUSATE CALCIUM 240 MG CAPSULE PO SCH (10:43)
[2017-01-09] MEDS: IBUPROFEN 800 MG TABLET PO PRN ×2 (10:43→20:18)
[2017-01-09] MEDS: SIMETHICONE 80 MG CHEWABLE TABLET PO SCH ×5 (10:44→22:06)
--- NOTE | 2017-01-09 12:01 | Progress Note ---
OB PP Progress Note Free Text - Date Date: 01/09/17 - Progress Note Progress Note: vss af bp better stated incision stings but it is c/d/i on exam. showered yesterday q&a plan dc today or tomorrow. remove pramod in my office on
[2017-01-10] MEDS: IBUPROFEN 800 MG TABLET PO PRN (04:16)
[2017-01-10] MEDS: HYDROCODONE/APAP 5mg/325mg TABLET PO PRN ×2 (04:17→08:31)
[2017-01-10 05:48] VITALS: RESP 16
[2017-01-10] MEDS: DOCUSATE CALCIUM 240 MG CAPSULE PO SCH (08:30)
[2017-01-10] MEDS: SIMETHICONE 80 MG CHEWABLE TABLET PO SCH (08:31)
[2017-01-10 11:32] VITALS: BP 134/91; PULSE 97; TEMP 97.7; O2SAT 98
== END 2017-01-10 12:56 | disposition home or self-care (01) | DRG 766 ==
LOC: MC 01-07 05:45
PROVIDERS: ADMIT Obstetrics & Gynecology; ATTEND Obstetrics & Gynecology